=== PATIENT | female | born 1955 | race African-American/Black ===

== ENCOUNTER 2017-04-24 12:46 | Inpatient (IN) | payer OTHER ==
--- OUTSIDE RECORDS SUMMARY | 2017-04-24 12:50 | XMS | Clinical Summary ---
:1955 Author Organization [facility] Address [address] [place] [address] Phone Care Team Providers Name Role Phone , Primary Care Provider Unavailable Allergies Not on File Current Medications Not on file Active Problems Not on file Social History Tobacco Use Types Packs/Day Years Used Date Never Assessed Sex Assigned at Date Recorded Not on file Last Filed Vital Signs Not on file Plan of Treatment Not on file Results Not on filefrom Last 3 Months
[2017-04-24] MEDS ORDERED: Ondansetron HCl/PF 4 MG/2 ML Vial IVP PRN (13:20)
[2017-04-24 14:08] LABS: PTT 72.9 SEC (22.9-36.1); Prothrombin Time 43.6 SEC (12.0-14.7)
[2017-04-24 14:27] LABS: ALT (SGPT) 8 U/L (8-55); AST (SGOT) 18 U/L (5-34); Alkaline Phosphatase 60 U/L (40-150); Anion Gap 24 mmol/L (10-20); BUN (Urea Nitrogen) 39 mg/dL (9.8-20.1); Bilirubin, Total 0.9 mg/dL (0.2-1.2); Calc. Creatinine Clearance 0 mL/min (70-130); Calcium 9.5 mg/dL (7.8-10.44); Carbon Dioxide 19 mmol/L (23-31); Chloride 93 mmol/L (98-107); Estimated GFR-MDRD 46; Globulin 4.4 g/dL (2.4-3.5); Protein, Total 7.4 g/dL (6.0-8.3)
[2017-04-24 15:05] LABS: Acanthocytes SLIGHT = 1-5 cells (100X) (None Seen); Anisocytosis SLIGHT = 6-15 cells (100X) (0-5/hpf); Hematocrit 32.1 % (36.0-47.0); Hypochromia SLIGHT = 6-15 cells (100X) (0-5/hpf); Mean Platelet Volume 6.4 fL (7.4-10.4); Neutrophil 94 % (42-75); Red Blood Cell (RBC) Count 3.42 mill/uL (4.20-5.40); White Blood Cell (WBC) Count 21.2 thou/uL (4.8-10.8)
[2017-04-24 16:27] LABS: Hematocrit 31.5 % (36.0-47.0)
[2017-04-24] MEDS ORDERED: Warfarin Sodium 2 MG TAB PO SCH (17:00)
[2017-04-24] MEDS: Furosemide 20 MG/2 ML VIAL SLOW IVP SCH (17:00)
[2017-04-24] MEDS: Atorvastatin Calcium 20 MG TAB PO SCH (20:55)
[2017-04-24] MEDS ORDERED: Enoxaparin Sodium 60 MG/0.6 ML SYRINGE SC SCH (21:00)
[2017-04-25] MEDS: Furosemide 20 MG/2 ML VIAL SLOW IVP SCH (03:12)
[2017-04-25 06:32] LABS: Prothrombin Time 50.1 SEC (12.0-14.7)
[2017-04-25] MEDS ORDERED: Digoxin 0.125 MG TAB PO SCH (09:00)
--- NOTE | 2017-04-25 09:36 | PRG ---
DATE OF SERVICE: 04/25/2017 Ms. Herrera is not feeling well. Her appetite is poor, she is not breathing well. She is not having a lot of urine output. PHYSICAL EXAMINATION: VITAL SIGNS: Blood pressure is 145/102, pulse is variable, 80 to 104. LUNGS: Clear. CARDIAC: Irregularly. ABDOMEN: Soft, nontender. EXTREMITIES: There is only mild edema. ASSESSMENT: 1. Congestive heart failure, diastolic, acute on chronic. 2. Atrial arrhythmias. 3. Intracavitary thrombus (thrombus in left atrial appendage). PLAN: Transesophageal echo tomorrow. Hopefully cardioversion with a goal of ablation. The patient 's status is tenuous currently.
--- NOTE | 2017-04-25 10:55 | RAD ---
CHEST ONE VIEW: History: CHF. Comparison: 03-28-17 FINDINGS: Cardiac silhouette is now predominately obscured by pleural fluid, left greater than right. Pulmonar y vasculature is markedly engorged with reticular nodular interstitial prominence remaining througho ut the remaining lung. Mediastinum is midline with posterior operative changes evident. Cardiac eliu tor leads overlie the chest. IMPRESSION: Pulmonary edema with large bilateral effusions. POS: [facility]
[2017-04-25] MEDS ORDERED: Furosemide 20 MG/2 ML VIAL SLOW IVP SCH ×2 (14:00→20:00)
[2017-04-25] MEDS: Atorvastatin Calcium 20 MG TAB PO SCH (20:01)
[2017-04-26] MEDS: Furosemide 20 MG/2 ML VIAL SLOW IVP SCH ×2 (05:21→13:35)
[2017-04-26 06:11] LABS: PTT 69.7 SEC (22.9-36.1); Prothrombin Time 41.8 SEC (12.0-14.7)
[2017-04-26 06:27] LABS: Anion Gap 18 mmol/L (10-20); BUN (Urea Nitrogen) 47 mg/dL (9.8-20.1); Calc. Creatinine Clearance 44 mL/min (70-130); Calcium 9.3 mg/dL (7.8-10.44); Carbon Dioxide 26 mmol/L (23-31); Chloride 93 mmol/L (98-107); Estimated GFR-MDRD 60
[2017-04-26 06:30] LABS: Digoxin 2.91 ng/mL (0.8-2.0)
--- NOTE | 2017-04-26 07:44 | RAD ---
CHEST 1 VIEW: Date: 04/26/17 HISTORY: Congestive heart failure. COMPARISON: Chest 1 view from prior day. FINDINGS: Large left and moderate right-sided layering effusions are similar. Compression atelectasis lung bas es, right middle lobe, and lingula. No pneumothorax. Median sternotomy wires. Mild dextroscoliosis o f the thoracic spine. IMPRESSION: No significant change in radiographic appearance of chest. Thoracentesis may be helpful. POS: [facility]
--- NOTE | 2017-04-26 09:32 | PRG ---
DATE OF SERVICE: 04/26/2017 Ms. Herrera is sitting up on the bedside. States she feels somewhat better today. PHYSICAL EXAMINATION: VITAL SIGNS: Blood pressure 118/77, pulse 70. Most recent rhythm strip actually looks like atrial fibrillation. LUNGS: Clear. CARDIAC: Irregularly irregular. ABDOMEN: Soft, nontender. EXTREMITIES: With still moderate edema. PERTINENT LABORATORY: The potassium is 4.2, sodium is 133, creatinine 1.12. Digoxin level is 2.91, which helps to explain her nausea and lack of appetite. ASSESSMENT: 1. Diastolic heart failure. 2. Large left pleural effusion. 3. Atrial tachycardia, atrial flutter, and atrial fibrillation. 4. Mild mitral stenosis. PLAN: 1. Transesophageal echo, possible cardioversion tomorrow. 2. Consult Pulmonary about possible thoracentesis.
--- NOTE | 2017-04-26 11:46 | PQF ---
CLINICAL DOCUMENTATION IMPROVEMENT CLARIFICATION FORM: ICD-10 Updated PLEASE DO AN ADDENDUM TO THE PROGRESS NOTE WITH ANY DOCUMENTATION UPDATES OR ADDITIONS AND CARRY THROUGH TO DC SUMMARY. THANK YOU. Date: 04/26/17 ATTN: Dr. Sawyer Please exercise your independent, professional judgment in responding to the clarification form. Clinical indicators are provided on the bottom of this form for your review Please check appropriate box(s): [ ] Protein Calorie Malnutrition: [ ] Mild [ ] Moderate [ ] Severe [ ] Other Malnutrition (please specify) __ [ ] Underweight without malnutrition [ ] Cachexia [ ] Other diagnosis [ ] Unable to determine In addition, please specify: Present on Admission (POA): [ ] Yes [ ] No [ ] Unable to determine CLINICAL INDICATORS - SIGNS / SYMPTOMS / LABS PN 10/3: HER APPETITE IS POOR, NOT BREATHING WELL. 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 LIMITED PO INTAKE X3- 4 WKS, 11% WT LOSS IN 1 MONTH, 15% WT LOSS IN -2 MONTHS, MUSCLE WASTING NOTED. RISK FACTORS: H&P: HX OF ATRIAL FIBRILLATION. IMPRESSION: DIASTOLIC CHF, ACUTE ON CHRONIC PN /: DIGOXIN LEVEL IS 2.91, WHICH HELPS TO EXPLAIN HER NAUSEA & LACK OF APPETITE TREATMENT: STATION INSPECTOR CONSULT TRIGGERED FOR BMI 18.5. (This form is maintained as a part of the permanent medical record) 2014 [employer], [employer]. All Rights Reserved Verónica Martinez RN, BSN [email or web address] Office: [phone] [facility]PITALJae
[2017-04-26 15:04] LABS: BF Reference Range Comment Note:
[2017-04-26 16:11] LABS: Hematocrit 30.8 % (36.0-47.0)
--- NOTE | 2017-04-26 16:22 | RAD ---
CHEST ONE VIEW: History: Thoracentesis. Follow up. Comparison: Earlier exam, same date. FINDINGS: Cardiac silhouette is magnified, enlarged, and partially obscured by bilateral pleural fluid. Left p leural fluid has decreased significantly since the prior study. Large amount of right pleural fluid appears unchanged. No evidence of pneumothorax. Mediastinum is midline with aortic calcification and post-operative louisa nges. threat monitoring analyst leads overlie the chest. IMPRESSION: Interval left thoracentesis without evidence of complication. POS: [facility]
[2017-04-26 17:00] LABS: BF Color Red
[2017-04-26 17:03] LABS: RBC Count-Automated 753000 /cumm
[2017-04-26 17:38] LABS: Number Cells Counted-Fluids 100
--- NOTE | 2017-04-26 20:22 | CON ---
DATE OF CONSULTATION: 04/26/2017 SUBJECTIVE: A 61-year-old female being consulted regarding bilateral pleural effusion. The patient has been in the hospital since 2 days. She presented with increasing shortness of breath about a w [place]'s duration. X-ray shows a massive left pleural effusion. PAST MEDICAL HISTORY: Pertinent for previous CVA in 2007, embolic, status post mitral valve repair 2018 in [place], history of chronic atrial fibrillation, history of renal failure, hypertension. MEDICATIONS: Coumadin 2.5, Zocor 40, potassium, Protonix 40, Lopressor 25, Lasix 20, Cardizem 120, digoxin 0.125. SOCIAL HISTORY: The patient has never smoked. No prior history of TB, pneumonia, or bronchitis. PAST SURGICAL HISTORY: Appendix along with mitral valve repair, ablation procedures, and upper GI e ndoscopy. REVIEW OF SYSTEMS: Otherwise, unremarkable. PHYSICAL EXAMINATION: VITAL SIGNS: Her blood pressure is 108/60, sats 97%, respiratory rate 18, pulse 90. CHEST: Decreased breath sounds bilaterally. CARDIOVASCULAR: Normal S1, S2. No gallops. ABDOMEN: Soft. No masses. LABORATORY DATA: INR is 4.1 today. Digoxin level is 2.9. Creatinine 1.12. IMAGING: X-ray shows bilateral pleural effusion is noted. IMPRESSION: Bilateral pleural effusion, previous mitral valve repair, chronic atrial fibrillation, cerebrovascular accident. PLAN: A thoracentesis will be done to release some of her dyspnea on the left side. In the meantime, continue cardiac care. We will follow.
[2017-04-26] MEDS: Atorvastatin Calcium 20 MG TAB PO SCH (20:39)
--- NOTE | 2017-04-26 23:20 | OP ---
PROCEDURE: Thoracentesis. INDICATION: Massive pleural effusion, left side. PROCEDURE IN DETAIL: After informed consent, the left posterior thorax was cleaned with chlorhexidi ne, 1% Xylocaine infiltrated into the 8th intercostal space in the midscapular area and using a 22-g auge needle 1.5 inch, the pleural cavity was entered in and 20 mL of bloody effusion was removed. T hereafter, using an 8-Maltese catheter, a total of 1500 mL was removed without any difficulty. Effus ion sent for appropriate studies including cytology and culture. The patient tolerated the procedur e well.
[2017-04-27 05:56] LABS: Digoxin 2.67 ng/mL (0.8-2.0)
[2017-04-27 08:00] LABS: Prothrombin Time 40.2 SEC (12.0-14.7)
[2017-04-27] MEDS ORDERED: Diprivan 20 ML ONE (09:27)
[2017-04-27] MEDS ORDERED: Propofol 1,000 MG/100 ML VIAL IV ONE (09:43)
[2017-04-27] MEDS ORDERED: Propofol 200 MG/20 ML VIAL ONE (09:51)
--- NOTE | 2017-04-27 10:11 | PRG ---
DATE OF SERVICE: 04/27/2017 Thoracentesis fluid showed it was an exudate, protein was 4.9, it was bloody with 75,000 RBCs. She is down having a cardioversion done. PHYSICAL EXAMINATION: VITAL SIGNS: Sats are 97, pulse 67, O2 sat 90%, blood pressure 100/52. X-ray post-thoracentesis shows left lung looks much improved, still has a sizable pleural effusion i n the right side. IMPRESSION: 1. Bilateral pleural effusion, bloody on the left side, there is a large right pleural effusion. 2. Atrial fibrillation. PLAN: Consider doing a thoracentesis on the right side post-cardioversion.
[2017-04-27 12:30] LABS: BF Reference Range Comment Note:
[2017-04-27 12:47] LABS: BF Color Red
[2017-04-27 12:57] LABS: RBC Count-Automated 218000 /cumm
[2017-04-27 13:34] LABS: Number Cells Counted-Fluids 100
--- NOTE | 2017-04-27 15:20 | RAD ---
PORTABLE CHEST 1 VIEW: Date: 04/27/17 Time: 1159 hours HISTORY: Pleural effusion, thoracentesis. FINDINGS/IMPRESSION: Comparison made with exam from previous day. Interval changes of right-sided thoracentesis are seen with aeration of the right lung. No pneumotho rax or focal areas of consolidation seen in the right lung. The heart is enlarged. There is patchy opacity in the left upper lobe. There is consolidation/atelec tatic change in the left lower lobe with probable accompanying effusion. POS: [facility]
[2017-04-27] MEDS: Atorvastatin Calcium 20 MG TAB PO SCH (20:29)
--- NOTE | 2017-04-27 20:54 | CON ---
DATE OF CONSULTATION: 04/27/2017 ELECTROPHYSIOLOGY CONSULTATION NOTE REASON FOR CONSULTATION: Atrial arrhythmias and left atrial appendage thrombus. PHYSICIAN REQUESTING CONSULTATION: Fawad Sawyer M.D. HISTORY OF PRESENT ILLNESS: Barb Herrera is a 61-year-old -[place] woman. She has a very c omplicated medical history. She has a history of mitral stenosis and a remote history of rheumatic heart disease. She evidently underwent mitral valve repair roughly 7 years ago. It is unclear whet her any additional procedures were done at the time of the surgery such as a CryoMaze procedure. He r left atrial appendage was not ligated as she has been suffering more recently with recurrent atria l tachycardias for which she has been symptomatic. This was first noticed and imaged about 4 weeks ago when she underwent WILLIAM at that time, she was found to have a large highly mobile thrombus and le ft atrial appendage. She was not on anticoagulation at that time. She was started on Coumadin and not cardioverted because of the risk of cardioembolic event. She came back into the hospital with s hortness of breath and was found to have an elevated INR, even though she was only taking low doses of Coumadin, her INR was 5 and she was found to have bilateral pleural effusions, these were drained and were hemorrhagic effusions. Anticoagulation was held and repeat WILLIAM was performed. At this ti me, the left atrial appendage was well visualized and there appeared to be thickening, possibly laye red thrombus on the pulmonary venous side of the left atrial appendage. No further mobile thrombus was seen, but a great deal of spontaneous echo contrast was seen in the appendage itself. We were a sked to assist in her care. PAST MEDICAL HISTORY: 1. Mitral stenosis previously underwent mitral valve repair. The original cause of the mitral sten osis was believed to be a rheumatic heart disease. 2. Atrial arrhythmia originally was an atrial tachycardia and this is now degenerated into atrial f ibrillation. 3. Status post mitral valve repair for mitral stenosis. She does still have an intact left atrial appendage. 4. Evidence of left atrial appendage thrombus 4 weeks ago. This is not completely resolved, despit e supratherapeutic anticoagulation strategies. 5. Evidence of bloody pleural effusions. This is likely due to elevated INR. CURRENT MEDICATIONS: See reconciled list in chart. FAMILY HISTORY: Negative for premature coronary disease. SOCIAL HISTORY: The patient does not smoke, drink heavily or use illicit drugs. REVIEW OF SYSTEMS: Negative 10-point except as outlined in the HPI. PHYSICAL EXAMINATION: VITAL SIGNS: Blood pressure 130/70, pulse is 65-80 and somewhat irregular, and respirations 18. GENERAL: This is a very weak appearing woman, elderly, appears much older than her stated age. She is in no acute distress. NECK: Supple. There is obvious JVD noted when supine. Carotids are normal without bruit. HEART: Demonstrates an irregular rate, normal S1, S2. S1 is increased in intensity. There is a 1/ 6 systolic murmur noted. She has a midline sternotomy scar. LUNGS: Clear with some rhonchi. ABDOMEN: Soft, no tenderness or guarding. EXTREMITIES: Without edema. SKIN: Warm and dry. NEUROLOGIC: Exam grossly nonfocal. IMAGING DATA: Telemetry demonstrates atrial fibrillation with controlled ventricular response. Pre vious telemetry demonstrates what appears to be an atrial tachycardia with variable AV conduction. Echo was reviewed showing probably either chronic appendage wall thickening or possibly a layered th rombus on the venous side of the left atrial appendage. MEDICAL DECISION MAKING: I had a 15-minute discussion with Ms. Herrera. Her case is extremely compl icated. Her WILLIAM today is fairly alarming in that she has very elevated INR and despite that still h as some abnormal thickening of the left atrial appendage suggesting some residual thrombus and very dense spontaneous echo contrast within the cavity of the left atrial appendage itself despite the me dication. She has hemorrhagic pleural effusions which were likely due to the elevated INR, however, she obviously needs anticoagulation from the stroke prevention standpoint as she has had essentiall y prohibitively high stroke risk if she were not anticoagulated appropriately, given the fact that e jess low doses of Coumadin left to elevated INR as I think that she needs to be switched to a differe nt anticoagulant strategy. I would suggest Eliquis 5 b.i.d., this is technically off labile because she does have valvular heart disease and valvular atrial fibrillation; however, Coumadin is not saf e in this patient, given her obvious complications related to this medication. Moreover, Eliquis sh ould have a lower likelihood of further bleeding complications and other anticoagulation strategies such as Lovenox therapy. Moreover Lovenox would be prohibitively expensive for the patient. Next, we have long-term, I think the patient needs to be placed on anticoagulation whenever pulmonary appr oves reinitiation of anticoagulation from a hemorrhagic pleural effusion standpoint. Once on antico agulation I think that she needs to be considered for ablative therapy along with appendage closure as quickly as the clinical progress allows. IMPRESSION: 1. Atrial fibrillation and atrial tachycardia. This finding that has directly lead to left atrial thrombus which has mostly resolved, but appears to be not completely resolve even though her INR was very high. 2. Bilateral hemorrhagic pleural effusions, likely due to an elevated INR. 3. History of mitral valve repair for mitral stenosis several years ago. RECOMMENDATIONS: 1. Began Eliquis 5 b.i.d., whenever Pulmonary allows this to be reinitiated following her thoracent esis. 2. We would consider proceeding to ablation of arrhythmia along with appendage closure risk as soon as the next few weeks.
[2017-04-27] MEDS ORDERED: Diltiazem HCl SR 60 mg Capsule PO SCH (21:00)
--- NOTE | 2017-04-27 21:11 | OP ---
PROCEDURE: Thoracentesis. INDICATION: Pleural effusion, right-sided. PROCEDURE IN DETAIL: After informed consent, the right posterior thorax was cleaned with chlorhexid ine and 1% Xylocaine was infiltrated into the right ninth intercostal space in the midscapular line; 20 mL of bloody effusion was removed. Thereafter, using an 8-Dominican catheter, a total of 900 mL wa s removed from the right side without any difficulty. Patient otherwise tolerated the procedure wel l. Pleural effusion will be sent for appropriate studies including cytology and culture. She now has bilateral bloody pleural effusions. Awaiting cytology and cultures.
--- NOTE | 2017-04-27 22:36 | ECHO ---
This is a 61-year-old woman with mitral stenosis and paroxysmal atrial fibrillation. DESCRIPTION OF PROCEDURE: The patient was taken to the PACU. The patient sedated by anesthesiology. Transesophageal probe was placed distal esophagus and stomach. Echocardiographic images were obtained. The transesophageal p robe was removed. FINDINGS: 1. Normal left ventricular systolic function. 2. The mitral valve leaflets are thickened with reduced leaflet excursion. 3. Mild mitral stenosis. 4. Mild tricuspid regurgitation. 5. Trivial aortic regurgitation. 6. A small thrombus is noted in the left atrial appendage. 7. Atherosclerotic debris in the descending aorta. IMPRESSION: Small thrombus noted in the left atrial appendage.
[2017-04-28 05:12] LABS: #Lymphocytes 0.6 thou/uL (1.20-3.40); #Neutrophils 15.5 thou/uL (1.40-6.50); %Eosinophils 0.1 % (0.0-10.0); %Lymphocytes 3.3 % (21.0-51.0); Hematocrit 28.7 % (36.0-47.0); Mean Platelet Volume 6.3 fL (7.4-10.4); Red Blood Cell (RBC) Count 3.05 mill/uL (4.20-5.40); White Blood Cell (WBC) Count 17.1 thou/uL (4.8-10.8)
[2017-04-28 05:18] LABS: Prothrombin Time 37.8 SEC (12.0-14.7)
--- NOTE | 2017-04-28 09:59 | RAD ---
PORTABLE CHEST: DATE: 04/28/17. PROVIDED CLINICAL HISTORY: Pleural effusion. FINDINGS: Comparison is made with the study dated 04/27/17. The cardiac silhouette remains enlarged. There is interval decrease in the amount of left pleural density with residual parenchymal opacity involving the left mid and lower lung zones demonstrated. There is interval development of consolidation inv olving the right lung base. There is no evidence for pneumothorax. Chronic obstructive changes are redemonstrated. IMPRESSION: 1. Interval reduction in the degree of left pleural opacity with persistent left mid and lower lung zone parenchymal opacity. 2. Interval development of right basilar airspace disease compatible with pneumonia or aspiration. POS: [facility]
--- NOTE | 2017-04-28 10:32 | PRG ---
DATE OF SERVICE: 04/28/2017 SUBJECTIVE: Ms. Herrera feeling somewhat better today. She underwent transesophageal echo, still bolton s some thrombus. She has undergone bilateral thoracentesis for bloody effusions. OBJECTIVE: VITAL SIGNS: Blood pressure 98/58, pulse it is in high 70s, irregular. LUNGS: Clear anterolaterally. CARDIAC: Irregularly irregular. ABDOMEN: Soft and nontender. ASSESSMENT: 1. Atrial fibrillation with accompanying diastolic dysfunction. 2. Bilateral bloody effusions which seems to correlate with increased INR, but not completely expla ined. I think she has some new infiltrate, it is unclear of the etiology of this. It could be reex pansion edema. We will give antibiotics to cover for any possible infection. PLAN: 1. Oral antibiotics. 2. Diltiazem. 3. Continue to hold Coumadin. 4. Dr. Chambers eventually plans on doing left atrial occlusion device and ablation.
--- NOTE | 2017-04-28 13:25 | PRG ---
DATE OF SERVICE: 04/28/2017 She is status post thoracentesis with bilateral effusion bloody exudate. She says she is better, sh e is less short of breath. Unfortunately, the x-ray today shows new bilateral pulmonary infiltrates , question whether this is diastolic dysfunction versus reexpansion edema. Though she is clearly le ss short of breath. PHYSICAL EXAMINATION: VITAL SIGNS: Blood pressure 98/58, pulse 66, temperature 97, sats are 90% on 2 liters. CHEST: Decreased breath sounds without any wheezing. CARDIAC: Normal S1, S2. No gallops. ABDOMEN: Soft, no masses. LABORATORY: White count 17,000, H\T\H 8 and 28, platelet count is normal. Electrolytes are normal. IMPRESSION: 1. Bilateral bloody effusion, awaiting cytology. 2. Diastolic dysfunction. 3. Persistent clots. PLAN: I have started empiric antibiotics. Continue Coumadin, supportive care. I will follow.
[2017-04-28 16:08] LABS: Hematocrit 28.7 % (36.0-47.0)
[2017-04-28] MEDS: Atorvastatin Calcium 20 MG TAB PO SCH (22:09)
[2017-04-28] MEDS: Cefdinir 300 MG CAP PO SCH (22:09)
--- NOTE | 2017-04-29 00:52 | PRG ---
DATE OF SERVICE: 04/28/2017 SUBJECTIVE: Ms. Herrera is doing well today. No angina, no CHF or significant dyspnea noted. OBJECTIVE DATA: VITAL SIGNS: Blood pressure is 97/58, heart rate is 64, respirations 16, temperature 98 degrees Fah renheit. GENERAL: Alert and oriented woman, in no apparent distress. NECK: Supple. Jugular veins not distended. CHEST: Coarse with few crackles at both bases. HEART: sounds are irregularly irregular. S1 and S2 are variable. No murmur or gallop. ABDOMEN: Benign. Bowel sounds positive. EXTREMITIES: Lower extremities without edema, clubbing or cyanosis. DATABASE: The EKG is reviewed. Telemetry strips reviewed reveals atrial fibrillation. LABORATORY DATA: White count 17.1, hemoglobin 8.9, platelet count is 390. Sodium 133, potassium 4. 2, BUN is 47, creatinine 1.1. INR is 3.6 today. Chest x-ray from today reveals reduction of the pl eural opacity in the left side, right basilar airspace disease, pneumonia versus aspiration noted. ASSESSMENT: Ms. Herrera is a 61-year-old woman with complicated history including mitral valve repai r, possible rheumatic mitral stenosis present now only to a mild degree. She has had history of irr egular atrial tachyarrhythmias, which felt to be secondary to a possible incisional atrial flutter. Subsequently, she developed atrial fibrillation as well. She has been on anticoagulation hence rec ent WILLIAM last admission demonstrated left atrial appendage clot, which still has not been completely resolved on follow up WILLIAM today. Her INRs are rather high. Complicated issues that she had some he morrhagic pleural effusions required tap this admission as well. Now she is off Coumadin and her IN R levels are decreasing. She is on rate control for her atrial fibrillation. PLAN: 1. As discussed with Dr. Chambers, is consider placing her on more reliant anticoagulant like Eliquis 5 mg twice a day, once pulmonary agrees, hence she is at high risk for strokes heavy smoke/sp ontaneous echo contrast on her WILLIAM incomplete resolution of her prior left atrial appendage cl ot possibly due to her rheumatic atrial disease. 2. Once she is back on anticoagulation, consider outpatient atrial tachycardia/pulmonary vein isola tion procedure and consider left atrial appendage closure as well likely in [place]. We will make arrangements for this to see us back early in an outpatient for having this set up.
[2017-04-29 05:22] LABS: Prothrombin Time 31.7 SEC (12.0-14.7)
[2017-04-29] MEDS: Cefdinir 300 MG CAP PO SCH ×2 (08:50→20:48)
--- NOTE | 2017-04-29 14:32 | RAD ---
CHEST 1 VIEW: HISTORY: CHF. Followup. COMPARISON: 04/28/17. FINDINGS: Cardiac silhouette remains magnified and enlarged. Pulmonary vasculature is engorged with patchy bi lateral perihilar and bibasilar infiltrates that are similar in appearance to the previous exam. Me diastinum remains midline with postoperative changes and aortic calcification. There is no evidence of pneumothorax. IMPRESSION: Radiographic appearance of congestive heart failure is stable compared to the previous exam. POS: [facility]
[2017-04-29 15:11] LABS: Fungus Smear Status Final report (.)
[2017-04-29 15:11] LABS: Fungus Smear Status Final report (.)
--- NOTE | 2017-04-29 15:48 | PRG ---
DATE OF SERVICE: 04/29/2017 SUBJECTIVE: Ms. Herrera clinically is unchanged. She tells me she has been losing weight since . OBJECTIVE: VITAL SIGNS: She is afebrile. Heart rate is 82 and blood pressure 148/89. LUNGS: Clear. HEART: Regular rhythm. ABDOMEN: Soft. LABORATORY DATA: Hemoglobin is 9. Sodium 133, potassium 4.2, chloride 93, bicarb 26, BUN 47 and creatinine down to 1.12. Both pleural fluid specimens have adenocarcinoma cytology. IMPRESSION: Adenocarcinoma of unknown primary. She is up to date on her colonoscopies. She still has her ovaries; ordered a CT of her chest, abdomen and pelvis without IV contrast since she present ed with an elevated creatinine and has no muscle mass. I do not think her creatinine is reflective of her renal function. I have not told her of her diagnosis, but I have told her that we are concer yaz about malignancy. I have planned to tell her tomorrow after her CT imaging.
--- NOTE | 2017-04-29 16:24 | PDOC.CTH ---
<Odessa Manriquez - Last Filed: 04/29/17 16:22> Cardiology Progress Note - Subjective The pt was seen and examined. No overnight events. No cardiac complaints. She stated she can breath better today. She stated her pleural fluid was bloody and will have CT scan chest today. She also stated that her appetite is better today - Objective Vital Signs Temp Pulse Pulse Pulse Resp BP BP 04/29/17 16:00 98.2 F 84 16 04/29/17 12:00 98 F 82 17 04/29/17 10:53 97 71 104/62 04/29/17 08:51 86 148/89 H 04/29/17 07:51 98.5 F 86 18 04/29/17 07:50 98.5 F 86 18 BP BP Pulse Ox Pulse Ox Pulse Ox 04/29/17 16:00 114/62 97 04/29/17 12:00 111/68 98 04/29/17 10:53 92/60 100 100 04/29/17 08:51 04/29/17 07:51 95 04/29/17 07:50 111/71 95 Admit Weight 114 lb 14.4 oz Weight 108 lb 14.4 oz 04/28/17 04/29/17 04/30/17 06:59 06:59 06:59 Intake Total 480 840 360 Output Total 550 400 Balance -70 440 360 - Physical Examination General/Neuro: alert & oriented x3 Neck: no JVD present Lungs: other: (diminished at bases) Heart: other: (irregular) Abdomen: soft Extremities: other: (2+ pitting edema in bilat ankles) - Telemetry Telemetry Rhythm: Afib - Labs Result Diagrams: 04/28/17 16:02 04/26/17 05:44 - Assessment/Plan 1. Atach/Afib/Alutter - Rate controlled; managed by EP 2. Acute on Chronic Diastolic HF - stable; cont. monitor 3. Lt plural effusion - Cytology revealed possible adenocarcinoma; resolut of Chest CT scan is pending; Dr Sanders will notify to the pt tomorrow 4. AKD - stable MAR reviewed Review of Systems - Review of Systems Constitutional: reports: no symptoms reported EENTM: reports: no symptoms reported Respiratory: reports: no symptoms reported Cardiac (ROS): reports: no symptoms reported ABD/GI: reports: no symptoms reported : reports: no symptoms reported <Misael Nolen - Last Filed: 04/29/17 20:05> Cardiology Progress Note - Objective Vital Signs Temp Pulse Pulse Pulse Resp BP BP 04/29/17 16:00 98.2 F 84 16 04/29/17 12:00 98 F 82 17 04/29/17 10:53 97 71 104/62 04/29/17 08:51 86 148/89 H BP BP Pulse Ox Pulse Ox Pulse Ox 04/29/17 16:00 114/62 97 04/29/17 12:00 111/68 98 04/29/17 10:53 92/60 100 100 04/29/17 08:51 Admit Weight 114 lb 14.4 oz Weight 108 lb 14.4 oz 04/28/17 04/29/17 04/30/17 06:59 06:59 06:59 Intake Total 480 840 960 Output Total 550 400 350 Balance -70 440 610 - Labs Result Diagrams: 04/28/17 16:02 04/26/17 05:44 - Assessment/Plan Pt. was seen and evaluated by me. I agree with the A/P by the TAKE UP SUPERVISOR. The effusions and diagnosis and discussion with the findings will be dealt with by pulmonology.
--- NOTE | 2017-04-29 18:13 | CT ---
CT CHEST WITHOUT CONTRAST CT ABDOMEN WITHOUT CONTRAST CT PELVIS WITHOUT CONTRAST 04/29/17 HISTORY: Bilateral malignant effusions, abnormal paracentesis, formed blood, possible adenocarcinoma. FINDINGS: Absence of IV contrast reduces the sensitivity of the exam particularly for evaluation of mediastina l, hilar, vascular structures and solid organs. There are moderate sized bilateral pleural effusions with adjacent patchy areas of consolidation. Th ere is evidence of old granulomatous disease in the chest. A moderate sized hiatal hernia is present . There is a 10 mm mediastinal lymph node in the precarinal region. There are vascular calcifications without evidence of aneurysmal dilatation of the thoracoabdominal aorta. No free air is seen in the abdomen. There is free fluid in the abdomen and pelvis consistent with as cites. There is an 18 mm low density lesion in the right lobe of the liver which does not meet criteria for simple cyst. There is mildly high density material in the gallbladder. No calculi is seen in the ki dneys, ureters or the urinary bladder. No hydroureteronephrosis noted on either side. The small bowel loops are not abnormally dilated. There is fecal material in the colon. There is med iastinal lymphadenopathy and omental thickening. There is nodularity arising from the peritoneum in the pelvis. Fibroid uterus is seen with some of the fibroids demonstrating calcifications. There are degenerative changes in the spine. There are postop changes of median sternotomy. There is a soft tissue mass in the left inguinal region measuring 3.5 cm likely lymphadenopathy. IMPRESSION: 1. Bilateral pleural effusions and adjacent areas of patchy consolidation. 2. Hiatal hernia. 3. Indeterminate 8 mm right liver lobe lesion. 4. Probable cholelithiasis. 5. Ascites. 6. Omental and peritoneal metastasis. 7. Mediastinal lymphadenopathy. 8. Fibroid uterus. 9. Left inguinal mass. 10.Findings are suspicious for metastatic disease. POS: [facility]
[2017-04-29] MEDS: Atorvastatin Calcium 20 MG TAB PO SCH (20:49)
[2017-04-30 05:35] LABS: Prothrombin Time 25.7 SEC (12.0-14.7)
[2017-04-30] MEDS: Cefdinir 300 MG CAP PO SCH ×2 (08:47→21:31)
--- NOTE | 2017-04-30 11:50 | RAD ---
AP VIEW CHEST: HISTORY: Congestive heart failure. FINDINGS: AP view chest is obtained on 04/30/17. Comparison is made to previous exam from 04/29/17. AP view chest demonstrates cardiomegaly. Sternotomy wires are seen. Small bilateral pleural effusi ons seen. Diffuse airspace opacities are seen in both perihilar and lung base regions. These may represent pu lmonary edema or pneumonia. Radiographic appearance of the chest is stable and unchanged. IMPRESSION: Stable AP view chest. POS: [facility]
--- NOTE | 2017-04-30 15:20 | PRG ---
DATE OF SERVICE: 04/30/2017 SUBJECTIVE: Ms. Herrera is hemodynamically stable. She is afebrile, heart rate 82, respiratory rate is 18, oximetry is 96, blood pressure 101/67. Heart and abdomen are unchanged. She does have a large left inguinal nodes that her 's has been there waxing and waning for ab out a year. He says she has been treated with antibiotics for this lymphadenopathy and lymph nodes have gone away. CT of her chest, abdomen and pelvis were reviewed. Bilateral pleural effusions were seen, old granu lomatous disease was seen, hiatal hernia was noted, 1 cm lymphnode was seen in the precarinal area. She has ascites. There is a 1.8 cm right lobe of the liver lesion, lymph nodes were seen in the ab domen and omental thickening was seen. Peritoneum was seen in the pelvis, uterine fibroids were see n. Left groin mass that was palpated today was seen measuring 3.5 cm. IMPRESSION: ? primary peritoneal carcinoma with ascites and pleural effusions as a result of this. I was consulted Oncology. More tissues needed these left inguinal lymph nodes should be easily acc essible. It is unclear with the history waxing and waning, although whether or not there will be ma lignant, but tissue diagnosis is probably at least risky here first. Given her underlying cardiac i ssues. I met with her and her for approximately 30 minutes and answered all of their questi ons.
[2017-04-30 15:58] LABS: Hematocrit 30.5 % (36.0-47.0)
--- NOTE | 2017-04-30 18:26 | PDOC.CTH ---
<MitraOdessa - Last Filed: 04/30/17 18:43> Cardiology Progress Note - Subjective The pt was seen and examined. No overnight events. No cardiac complaints. She stated she finally had BM today. - Objective Vital Signs Temp Pulse Resp BP Pulse Ox 04/30/17 16:00 98.4 F 118 H 18 145/77 H 04/30/17 12:00 97.4 F L 87 18 110/70 20 L 04/30/17 08:47 82 04/30/17 08:00 98.4 F 118 H 18 95 04/30/17 07:30 98.2 F 82 18 101/67 96 Admit Weight 114 lb 14.4 oz Weight 109 lb 8 oz 04/29/17 04/30/17 05/01/17 06:59 06:59 06:59 Intake Total 840 1060 Output Total 400 650 Balance 440 410 - Physical Examination General/Neuro: alert & oriented x3 Neck: no JVD present Lungs: CTA Heart: other: (irregular) Abdomen: soft Extremities: other: (No edema) - Telemetry Telemetry Rhythm: Afib 90s - Labs Result Diagrams: 04/30/17 15:44 04/26/17 05:44 - Assessment/Plan 1. Atach/Afib/Alutter - Rate controlled; managed by EP 2. Acute on Chronic Diastolic HF - stable; cont. monitor 3. Lt plural effusion - CT at chest, ABD, and Pelvis showed omental and peritoneal metastasis, bilat. pleural effusion, 1 cm lymphnode in precainal area , ascites, Lt Inguinal mass 4. AKD - stable MAR reviewed * CT at chest, ABD, and Pelvis showed omental and peritoneal metastasis, bilat. pleural effusion, 1 cm lymph node in precainal area, ascites, and Lt Inguinal mass; Review of Systems - Review of Systems Constitutional: reports: no symptoms reported EENTM: reports: no symptoms reported Respiratory: reports: no symptoms reported Cardiac (ROS): reports: no symptoms reported ABD/GI: reports: no symptoms reported : reports: no symptoms reported Musculoskeletal: reports: no symptoms reported <Misael Nolen - Last Filed: 04/30/17 22:25> Cardiology Progress Note - Objective Vital Signs Temp Pulse Resp BP BP Pulse Ox 04/30/17 19:30 98.2 F 80 18 97/71 97 04/30/17 16:00 98.4 F 118 H 18 145/77 H 04/30/17 12:00 97.4 F L 87 18 110/70 20 L Admit Weight 114 lb 14.4 oz Weight 109 lb 8 oz 04/29/17 04/30/17 05/01/17 06:59 06:59 06:59 Intake Total 840 1060 Output Total 400 650 Balance 440 410 - Labs Result Diagrams: 04/30/17 15:44 04/26/17 05:44 - Assessment/Plan Pt. seen and evaluated. i agree with the A/P by the FENCE BUILDER
[2017-04-30] MEDS: Atorvastatin Calcium 20 MG TAB PO SCH (21:31)
[2017-05-01 05:14] LABS: Prothrombin Time 21.9 SEC (12.0-14.7)
--- NOTE | 2017-05-01 08:22 | RAD ---
AP VIEW CHEST: HISTORY: Congestive heart failure, 61-year-old female. FINDINGS: AP view chest was obtained on 05/01/17. Comparison is made to previous exam from 04/30/17. AP view chest demonstrates sternotomy wires seen. Cardiomegaly is noted. Bibasilar areas of airspa ce opacity are seen, not significantly changed since the previous exam. Small bilateral pleural eff usions seen. IMPRESSION: Stable AP view of the chest not significantly changed since the previous day's exam. POS: [facility]
[2017-05-01] MEDS ORDERED: Enoxaparin Sodium 60 MG/0.6 ML SYRINGE SC SCH (09:00)
[2017-05-01] MEDS ORDERED: Enoxaparin Sodium 40 MG/0.4 ML SYRINGE SC SCH (09:15)
--- NOTE | 2017-05-01 09:38 | PRG ---
DATE OF SERVICE: 05/01/2017 Ms. Herrera is sitting up in the chair, feeling better today. She has no chest pain or pressure. PHYSICAL EXAMINATION: VITAL SIGNS: Blood pressure 101/63, pulse 76 irregular. LUNGS: Clear. CARDIAC: Irregular, irregular. ABDOMEN: Soft, nontender. EXTREMITIES: No edema. Reviewing the records, it appears that there is some evidence of malignancy in the pleural fluid whi ch was obtained, also some omental and peritoneal metastasis. Intracardiac thrombus. PLAN: 1. Will need to start enoxaparin as her Coumadin level is subtherapeutic now. 1. Oncology consultation pending. Prognosis is guarded.
--- NOTE | 2017-05-01 11:17 | PRG ---
DATE OF SERVICE: 05/01/2017 Ms. Herrera did well overnight. She has no complaints. She is in no distress. PHYSICAL EXAMINATION: VITAL SIGNS: She is afebrile, heart rate 92, respiratory rate is 12, oximetry is 100, blood pressur e 105/64. LUNGS: Lungs are clear. Hemoglobin was 9.4 yesterday. There is hemoglobin today. Electrolytes have not been checked since the 4th. IMPRESSION: ? Primary peritoneal carcinoma. She is scheduled for lymph node biopsy today. She is NPO.
[2017-05-01 12:04] LABS: Anion Gap 14 mmol/L (10-20); BUN (Urea Nitrogen) 20 mg/dL (9.8-20.1); Calc. Creatinine Clearance 63 mL/min (70-130); Calcium 8.1 mg/dL (7.8-10.44); Carbon Dioxide 26 mmol/L (23-31); Chloride 97 mmol/L (98-107); Estimated GFR-MDRD Greater than 90
--- NOTE | 2017-05-01 12:13 | PQF ---
CLINICAL DOCUMENTATION IMPROVEMENT CLARIFICATION FORM: ICD-10 Updated PLEASE DO AN ADDENDUM TO THE PROGRESS NOTE WITH ANY DOCUMENTATION UPDATES OR ADDITIONS AND CARRY THROUGH TO DC SUMMARY. THANK YOU. Date: 05/01/17 ATTN : Dr. Sawyer Please exercise your independent, professional judgment in responding to the clarification form. Clinical indicators are provided on the bottom of this form for your review Please check appropriate box(s): [ ] Protein Calorie Malnutrition: [ ] Mild [ ] Moderate [ ] Severe [ ] Other Malnutrition (please specify) __ [ ] Underweight without malnutrition [ ] Cachexia [ ] Other diagnosis [ ] Unable to determine In addition, please specify: Present on Admission (POA): [ ] Yes [ ] No [ ] Unable to determine CLINICAL INDICATORS - SIGNS / SYMPTOMS / LABS PN 04/25: HER APPETITE IS POOR, NOT BREATHING WELL. COACH OPERATOR ASSESS 04/25: TRIGGERED FOR BMI 18.4 NUTRITION DX: MALNUTRITION RELATED TO CHF. LIMITED PO INTAKE X3- 4 WKS, 11% WT LOSS IN -1 MONTH, 15% WT LOSS IN -2 MONTHS, MUSCLE WASTING NOTED. COACH OPERATOR ASSESS 05/01: BMI 17.7 RISK FACTORS: H&P: HX OF ATRIAL FIBRILLATION. DIASTOLIC CHF, ACUTE ON CHRONIC PN 05/01: IT APPEARS THAT THERE IS SOME EVIDENCE OF MALIGNANCY IN THE PLEURAL FLUID, ALSO SOME OMENTAL & PERITONEAL METASTASIS. TREATMENT: COACH OPERATOR CONSULT TRIGGERED FOR BMI 18.5. ORDER 04/28: FOR DIET SUPPLEMENT TID (This form is maintained as a part of the permanent medical record) 2014 [employer]. All Rights Reserved Verónica Martinez RN, BSN [email or web address] Office: [phone] [facility]
[2017-05-01] MEDS ORDERED: Lidocaine 1% w/Epinephrine 1:200K 30 ML VIAL ONE (12:56)
[2017-05-01] MEDS ORDERED: Fentanyl 100 MCG/2 ML VIAL ONE ×2 (13:16→14:59)
--- NOTE | 2017-05-01 14:13 | CON ---
DATE OF CONSULTATION: 05/01/2017 CONSULTING PHYSICIAN: Nitza Moreno, Nurse Practitioner CHIEF COMPLAINT: Left inguinal lymphadenopathy, malignant pleural effusion. HISTORY OF PRESENT ILLNESS: The patient is a 61-year-old pleasant black female. She has been hospi talized for a week. She initially presented with shortness of breath. She had a recent history of atrial fibrillation with a recognized intracardiac blood clot. Upon admission, it was recognized th at she had a large pleural effusion that was felt to potentially be contributing to her shortness of breath. She had a bilateral thoracentesis performed. Malignant cells were identified and the taps were both bloody. Subsequent imaging studies revealed some degree of ascites and potential mass in the pelvis. She was recognized to have a large left inguinal lymph node. I am consulted for a lym ph node biopsy to obtain a tissue diagnosis to hopefully help guide further treatment. The patient states that she has had some degree of inguinal lymphadenopathy over the course of the p ast year. She had developed this on one side and it was treated with antibiotics with reported reso lution. She developed then on the other side and this also seemed to respond to antibiotics. She a nd her believe that his current large left inguinal lymph node has been present for about 3 months. PAST MEDICAL HISTORY: 1. Cerebrovascular accident in 2007 (with no apparent sequelae from this). 2. History of atrial fibrillation and atrial flutter. 3. History of renal failure. 4. Hypertension. PAST SURGICAL HISTORY: 1. Appendectomy. 2. Open mitral valve repair about 10 years ago. 3. Cardiac ablation procedures. CURRENT MEDICATIONS: Coumadin, Zocor, potassium, Protonix, Lopressor, Lasix, Cardizem, digoxin. ALLERGIES: No known drug allergies. PERSONAL AND SOCIAL HISTORY: She is and is present at bedside. She has 2 children. She never smoked. PRIMARY CARE PHYSICIAN: Dr. Mederos. REVIEW OF SYSTEMS: Otherwise unremarkable. FAMILY HISTORY: Noncontributory. PHYSICAL EXAMINATION: VITAL SIGNS: She is afebrile. Vital signs are essentially within normal limits currently. GENERAL: She is alert and oriented x3. HEENT: Unremarkable. NECK: Supple. LUNGS: Clear to auscultation. CARDIAC: Irregularly irregular. LUNGS: Clear to auscultation bilaterally. ABDOMEN: Mildly protuberant, but soft and nontender. EXTREMITIES: She has an easily palpable mass in her left groin medially. This appears to be at ashish st 3 maybe 4 cm in diameter. There is mild lymphadenopathy on the right side if any. Extremities o therwise unremarkable. LABORATORY AND X-RAY FINDINGS: INR was elevated upon admission at 4, it is currently 1.9. ASSESSMENT: Patient with a malignancy of uncertain etiology with an apparent malignant pleural effu lalitha. She has large lymph nodes in her left groin and it is hoped that tissue sampling of this will allow us to recognize a diagnosis as the etiology of her cancer. Unfortunately, this is quite larg e in a woman who is relatively thin and removal of this has issues regarding subsequent seroma forma tion. I spoke with the patient regarding this. She understands and agrees to proceed. Additionall y, since she is anticoagulated there is potential risk associated with this in this patient. She wi ll continue on Lovenox postoperatively because of the risk regarding her cardiac situation and this also increases surgical site risk. It is, however, currently the lesser of the potential problems related to anticoagulation. The patient and her family understand and agree to proceed with surgery at this time.
[2017-05-01] MEDS ORDERED: Bupivacaine 0.25% HCL 30 ML VIAL ONE (14:44)
[2017-05-01] MEDS ORDERED: Midazolam HCl 2 mg/2 ml Vial ONE (14:59)
[2017-05-01] MEDS ORDERED: Lidocaine 1% PF 5 ML VIAL ONE (15:10)
[2017-05-01] MEDS ORDERED: Propofol 200 MG/20 ML VIAL ONE (15:10)
[2017-05-01] MEDS ORDERED: PHENYLEPHRINE-NS 100 MCG/ML 10 ML SYRINGE ONE (15:10)
[2017-05-01] MEDS ORDERED: ePHEDrine/0.9% NaCl/PF SYRINGE 50 mg/10 ml ONE (15:10)
[2017-05-01] MEDS ORDERED: Ondansetron HCl/PF 4 MG/2 ML Vial ONE (15:10)
[2017-05-01] MEDS ORDERED: Ondansetron HCl/PF 4 MG/2 ML Vial IVP PRN (16:43)
[2017-05-01] MEDS ORDERED: Morphine Sulfate 2 MG/ML SYRINGE SLOW IVP PRN (16:43)
[2017-05-01] MEDS ORDERED: Morphine Sulfate 2 MG/ML SYRINGE ONE (16:53)
[2017-05-01] MEDS: Cefdinir 300 MG CAP PO SCH ×2 (17:54→21:21)
[2017-05-01] MEDS: Atorvastatin Calcium 20 MG TAB PO SCH (21:21)
--- NOTE | 2017-05-01 23:08 | OP ---
DATE OF SERVICE: 05/01/2017 PREOPERATIVE DIAGNOSIS: Left inguinal lymphadenopathy with about a 4 cm left inguinal lymph node. POSTOPERATIVE DIAGNOSIS: Left inguinal lymphadenopathy with about a 4 cm left inguinal lymph node. OPERATION PERFORMED: Excision of large left inguinal lymph node with complex layered closure. SURGEON: Kendrick Quezada M.D. ANESTHESIA: General with laryngeal mask airway. INDICATIONS: The patient is a 61-year-old black female. She presented to the hospital and was foun d to have pleural effusions which were drained. There was found to be malignancy within the pleural effusions. Further workup revealed significant left inguinal lymphadenopathy and I am consulted at this time for left inguinal lymph node biopsy for diagnosis. DESCRIPTION OF OPERATION: Informed consent was obtained. The patient was taken to the operating ro om where general anesthesia was obtained with the patient in supine position. Left groin was preppe d with ChloraPrep and draped in sterile fashion. Local anesthetic was infiltrated using 1% lidocain e with epinephrine. Transverse incision was created over the large visible and palpable lymph node. Dissection was carried through skin and subcutaneous tissue down to the lymph node. It was carefu lly dissected circumferentially. All investing tissue was divided between clamps and 2-0 silk ties. At the base of the lymph node with the largest amount of investing tissue, the tissue was clamped and it was excised and the tissue was ligated with a suture ligature of 2-0 Vicryl. Hemostasis was meticulous within the wound. It was then closed in a multilayered fashion using a series of interru pted sutures of 3-0 Vicryl to try and approximate the large space. Skin edges approximated wit h a running subcuticular suture of 4-0 Monocryl. Dermabond was placed externally. There were no co mplications. The patient tolerated the procedure well and was taken to recovery room in stable cond ition.
[2017-05-02 05:53] LABS: Hematocrit 27.2 % (36.0-47.0)
[2017-05-02 06:22] LABS: Calc. Creatinine Clearance 66 mL/min (70-130); Estimated GFR-MDRD Greater than 90
[2017-05-02] MEDS ORDERED: Enoxaparin Sodium 40 MG/0.4 ML SYRINGE SC SCH (09:15)
--- NOTE | 2017-05-02 09:29 | PRG ---
DATE OF SERVICE: 05/02/2017 Ms. Herrera is feeling well today. No chest pain or pressure, but she has very little appetite. She has been given dietary supplements to try to help, but I do not think she is taking a lot of the m. The patient underwent left inguinal node biopsy yesterday. PHYSICAL EXAMINATION: VITAL SIGNS: Blood pressure is low 94/51, pulse 80, it is irregular. LUNGS: Clear. CARDIAC: Irregular, irregular. ABDOMEN: Soft, nontender. EXTREMITIES: There is no significant edema. ASSESSMENT: 1. Metastatic cancer. 2. Atrial fibrillation. 3. Atrial thrombus. 4. Malnutrition. PLAN: 1. She is getting dietary supplementation. 2. We will need to resume Lovenox, we will start at 40 mg q.12 h. 3. Repeat chest x-ray tomorrow. Prognosis is guarded.
[2017-05-02] MEDS: Cefdinir 300 MG CAP PO SCH ×2 (09:34→20:17)
[2017-05-02] MEDS ORDERED: Milk Of Magnesia 30 ML UDCUP PO PRN (10:33)
[2017-05-02] MEDS: Enoxaparin Sodium 40 MG/0.4 ML SYRINGE SC SCH ×2 (10:44→20:17)
[2017-05-02] MEDS: Acetaminophen 325 MG TAB PO PRN ×2 (10:56→21:35)
--- NOTE | 2017-05-02 15:58 | PRG ---
DATE OF SERVICE: 05/02/2017 SUBJECTIVE: Ms. Herrera did not want to get out of bed with physical therapy, because of pain in her groin where she had a biopsy yesterday. OBJECTIVE: VITAL SIGNS: She is afebrile, heart rate is 99, respiratory rate 16, blood pressure 96/69. GENERAL: She is in no distress. LUNGS: Clear anteriorly. HEART: Regular rhythm. ABDOMEN: Soft. PATHOLOGY: Pending on the lymph node biopsy. IMPRESSION: 1. ?primary peritoneal carcinoma. 2. Underlying cardiomyopathy. 3. Cachexia, most likely secondary to her malignancy. 4. Atrial fibrillation with an atrial thrombus. PLAN: Continue anticoagulation and supportive care. I have explained to her that physical therapy is the most important part of management of her illness at this point in time, so she agreed to sit up in a chair later today.
[2017-05-02 16:18] LABS: Hematocrit 33.5 % (36.0-47.0)
[2017-05-02] MEDS: Atorvastatin Calcium 20 MG TAB PO SCH (20:17)
[2017-05-03 05:22] LABS: #Eosinphils 0.1 thou/uL (0.0-0.7); #Lymphocytes 0.8 thou/uL (1.20-3.40); #Monocytes 0.7 thou/uL (0.11-0.59); #Neutrophils 13.3 thou/uL (1.40-6.50); %Basophils 0.2 % (0.0-1.0); %Eosinophils 0.8 % (0.0-10.0); %Lymphocytes 5.1 % (21.0-51.0); %Monocytes 4.8 % (0.0-10.0); Mean Platelet Volume 6.3 fL (7.4-10.4); Red Blood Cell (RBC) Count 2.95 mill/uL (4.20-5.40)
--- NOTE | 2017-05-03 07:44 | RAD ---
SINGLE VIEW OF THE CHEST: COMPARISON: 05/01/17. HISTORY: Pleural effusion. FINDINGS: A single view of the chest shows an enlarged but stable cardiomediastinal silhouette. The patient i s status post sternotomy. There are small bilateral pleural effusions with adjacent atelectasis. IMPRESSION: Bilateral pleural effusions. POS: [facility]
[2017-05-03] MEDS ORDERED: Enoxaparin Sodium 40 MG/0.4 ML SYRINGE SC SCH (09:00)
--- NOTE | 2017-05-03 09:05 | PRG ---
DATE OF SERVICE: 05/03/2017 SUBJECTIVE: Ms. Herrera is sitting up in a chair. She is awake and alert today and feels better. I think her appetite is still very poor. OBJECTIVE: VITAL SIGNS: Blood pressure 95/57; pulse 80, it is irregular, it is atrial fibrillation. LUNGS: Clear. CARDIAC: Irregularly irregular. ABDOMEN: Soft, nontender. EXTREMITIES: There is no edema. ASSESSMENT: 1. Recently diagnosed adenocarcinoma. Further details pending on that. There is some handwritten note about this being potentially being ovarian. 2. Mitral stenosis, which appears to be mild to moderate on echocardiogram. 3. Normal left ventricular function. 4. Left atrial appendage thrombus. PLAN: 1. She is back on enoxaparin. She was on 40 mg subcutaneous every 12 hours yesterday. We will go to 50 mg subcutaneous every 12 hours. 2. If she is stable tomorrow, we will change her to Eliquis. 3. Consider outpatient left atrial appendage occlusion device, await further information about plan from a malignancy standpoint.
[2017-05-03] MEDS: Cefdinir 300 MG CAP PO SCH ×2 (09:22→20:22)
[2017-05-03] MEDS: Enoxaparin Sodium 60 MG/0.6 ML SYRINGE SC SCH ×2 (09:22→20:23)
--- NOTE | 2017-05-03 14:30 | PRG ---
DATE OF SERVICE: 05/03/2017 Barb Herrera remain stable. PHYSICAL EXAMINATION: VITAL SIGNS: Heart rate is in the 90s. She is afebrile, respiratory rate is 18, oximetry is 94. S he is anticoagulated. Chest radiograph shows no rapid recurrence of her effusions. IMPRESSION: I suspect these effusions were malignant, but the majority of the fluid was related to her rhythm disturbance. The pleural fluid glucose less than 20 on the 04/27/2017 specimen would arg ue that this was going to be malignant or infected, it turned out to be malignant. In any event, we are awaiting pathology of lymph nodes that have been resected to hopefully facilitate planning for chemotherapy.
[2017-05-03] MEDS: Atorvastatin Calcium 20 MG TAB PO SCH (20:22)
--- NOTE | 2017-05-03 21:33 | PRG ---
DATE OF SERVICE: 05/03/2017 SUBJECTIVE: Ms. Herrera is doing fair. No new symptoms noted. No significant palpitation noted. OBJECTIVE DATA: VITAL SIGNS: Blood pressure is 97/67, heart rate 90, respiratory rate 16, temperature 97.6 degrees Fahrenheit. GENERAL: Alert and oriented woman, in no apparent distress. NECK: Supple. Jugular veins not distended. CHEST: Coarse, no crackles. CARDIOVASCULAR: Heart sounds are irregular. CARDIOVASCULAR: S1, S2, variable. No murmur or gallop. ABDOMEN: Benign. Bowel sounds positive. EXTREMITIES: Lower extremities without edema, clubbing, or cyanosis. LABORATORY DATA: Elevated white count of 15, hemoglobin 8.6, platelet count is 244. Chest x-ray from 05/03/2017 reveals bilateral pleural effusion. ASSESSMENT AND PLAN: Ms. Herrera is a pleasant 61-year-old woman with history of rheumatic mitral va lve disease, mild mitral stenosis, recurrent atrial arrhythmias including possibly incisional atrial tachycardia, remote history of cavo-tricuspid isthmus ablation, and more recently atrial fibrillati on. She presented with dyspnea and had significant pleural effusion, which was tapped and eventuall y found to be a malignant effusion. She had continued atrial fibrillation. Repeat WILLIAM was performe d and has a prior history of left atrial appendage clot therapeutic INR as she presented. PLAN: My plan is, 1. Her atrial arrhythmias likely at this point to be treated conservatively. Anticoagulation likel y will be important, especially in view of her rheumatic heart disease and recurrent clots present. For now, she is on subcutaneous Lovenox. Consider converting her to Eliquis, as the labile INRs pr ior to admission contributed to her blood loss. 2. Long-term management depends on her prognosis at this point. Further details will be needed reg arding her adenocarcinoma, which recently was diagnosed from the pleural fluid. 3. Heart rate is adequately controlled. Continue the diltiazem already initiated.
[2017-05-04 05:02] LABS: Hematocrit 28.9 % (36.0-47.0)
[2017-05-04 05:03] LABS: #Eosinphils 0.1 thou/uL (0.0-0.7); #Lymphocytes 0.6 thou/uL (1.20-3.40); #Monocytes 0.9 thou/uL (0.11-0.59); #Neutrophils 14.8 thou/uL (1.40-6.50); %Eosinophils 0.6 % (0.0-10.0); %Lymphocytes 3.8 % (21.0-51.0); %Monocytes 5.5 % (0.0-10.0); Hematocrit 28.5 % (36.0-47.0); Mean Platelet Volume 6.7 fL (7.4-10.4); Red Blood Cell (RBC) Count 2.97 mill/uL (4.20-5.40); White Blood Cell (WBC) Count 16.4 thou/uL (4.8-10.8)
[2017-05-04 05:38] LABS: Anion Gap 10 mmol/L (10-20); BUN (Urea Nitrogen) 16 mg/dL (9.8-20.1); Calc. Creatinine Clearance 71 mL/min (70-130); Carbon Dioxide 28 mmol/L (23-31); Chloride 98 mmol/L (98-107); Estimated GFR-MDRD Greater than 90
--- NOTE | 2017-05-04 08:48 | RAD ---
AP VIEW CHEST: HISTORY: Congestive heart failure. FINDINGS: AP view chest was obtained on 05/04/17. Comparison is made to the previous exam from 05/03/17. AP view chest demonstrates EKG leads seen over the chest. Sternotomy wires are seen. Bilateral ple ural effusions seen. Areas of patchy airspace opacity are seen throughout the lungs unchanged since the previous day's exam. IMPRESSION: Bilateral pleural effusions with possible loculations as well as bilateral airspace opacities. POS: [facility]
--- NOTE | 2017-05-04 09:37 | PRG ---
DATE OF SERVICE: 05/04/2017 SUBJECTIVE: Ms. Herrera is awake and alert today, doing okay. PHYSICAL EXAMINATION: VITAL SIGNS: Blood pressure 99/53, pulse currently is in the 90s, it is atrial fibrillation. LUNGS: Decreased breath sounds at bases. CARDIAC: Irregular, irregular. ABDOMEN: Soft, nontender. EXTREMITIES: There is only mild edema. ASSESSMENT: 1. Atrial fibrillation, now chronic. 2. Edema. 3. Metastatic cancer. 4. Pleural effusions bloody. 5. Atrial appendage clot. PLAN: 1. Change to alkalosis. 2. Chest x-ray and CBC tomorrow. If stable, home. 3 Therapy for the cancer per the oncologist. 4. Eventually would like to see if we can get a left atrial appendage occlusion device, so she can get off Coumadin at some point. The heart failure, appears to be diastolic in nature, will try to c ontrol her heart rate and give her low dose diuretics.
[2017-05-04] MEDS: Apixaban 5 MG TAB PO SCH ×2 (09:49→20:48)
[2017-05-04 12:39] VITALS: BMI 18.2
[2017-05-04] MEDS: Furosemide 20 MG TAB PO SCH (13:45)
--- NOTE | 2017-05-04 16:00 | PRG ---
DATE OF SERVICE: 05/04/2017. SUBJECTIVE: Sitting on the side of the bed, eats meat low, she has actually been eating more. OBJECTIVE: VITAL SIGNS: She is afebrile, heart rate is 94, respiratory rate is 18, oximetry is 100, blood pres sure is 90/59. LUNGS: Unchanged. LABORATORY DATA: White count 16.4, hemoglobin 8.9, platelets 266. Electrolytes were unremarkable. Lymph node pathology is still pending. IMPRESSION: 1. 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 2. Anticoagulation. 3. Left atrial thrombus. 4. Atrial fibrillation. PLAN: Continue supportive care. Awaiting pathology. Dr. Sawyer plans another radiograph in the mo rning. I doubt she will bleed into her chest with her anticoagulants. He will check a radiograph i n the morning and then he will make a decision about discharge.
[2017-05-04 16:22] LABS: Hematocrit 28.7 % (36.0-47.0)
[2017-05-04] MEDS: Potassium Chloride 10 MEQ TAB PO SCH (17:14)
[2017-05-04 19:44] LABS: Calc. Creatinine Clearance 68 mL/min (70-130); Estimated GFR-MDRD Greater than 90
[2017-05-04] MEDS: Atorvastatin Calcium 20 MG TAB PO SCH (20:48)
--- NOTE | 2017-05-04 20:56 | PRG ---
DATE OF SERVICE: 05/04/2017 SUBJECTIVE: Ms. Herrera seems to be doing well today. She denies palpitations or chest pain. OBJECTIVE: VITAL SIGNS: Blood pressure is 108/72, heart rate 98, respiration is 18, temperature 97.6 degrees F ahrenheit. GENERAL: Alert and oriented woman, in no apparent distress. NECK: Supple. Jugular veins not distended. CHEST: Coarse without crackles. CARDIOVASCULAR: Heart sounds are irregularly irregular. S1 and S2 variable. No murmur or gallop. ABDOMEN: Benign. Bowel sounds positive. EXTREMITIES: Lower extremities without edema, clubbing, or cyanosis. DATABASE: Chest x-ray today reveals bilateral pleural effusions with possible loculation as well as disease. EKGs reviewed reveals atrial fibrillation with reasonable rate control. LABORATORY DATA: Hemoglobin is 8.9. White count 16.4, platelet count is 266. ASSESSMENT AND PLAN: Ms. Herrera is a 61-year-old woman with a history of rheumatic mitral valve dis ease, status post mitral repair in the past. Currently, she has mild mitral valve stenosis only. S he initially presented with atrial tachycardia, possibly the incisional flutter, but now she is conv erted to an atrial fibrillation, rate control is easier with atrial fibrillation currently. Particularly in her issues with anticoagulation, she has had left atrial clot-preventing cardioversi on in the past and then she developed hemorrhagic pleural effusions while on Coumadin with a suprath erapeutic INR. During the workup, the pleural effusion came back malignant appearing and she is on workup for [facility] care for her likely pulmonary malignancy. At this point, we will continue rate control for atria l fibrillation. We already initiated diltiazem and also advocated continued anticoagulation due to her rheumatic heart disease and prior clots, now with Nabila since her for warfarin hence the labil e INRs prior. Plan is to continue diltiazem and Nabila wondered for recurrent bleeding, consider anticoagulation and possibly cardioversion at a later date. Also, she would be a very reasonable candidate for a Wa tchman procedure once clinically stable. Probably I will see this lady back in the next 2 to 6 week s in our clinic to discuss that option further.
[2017-05-05 05:15] LABS: #Basophils 0.1 thou/uL (0.0-0.2); #Eosinphils 0.1 thou/uL (0.0-0.7); #Lymphocytes 0.7 thou/uL (1.20-3.40); #Monocytes 0.9 thou/uL (0.11-0.59); #Neutrophils 15.8 thou/uL (1.40-6.50); %Basophils 0.3 % (0.0-1.0); %Eosinophils 0.5 % (0.0-10.0); %Lymphocytes 3.9 % (21.0-51.0); %Monocytes 5.1 % (0.0-10.0); Hematocrit 27.4 % (36.0-47.0); Mean Platelet Volume 6.4 fL (7.4-10.4); Red Blood Cell (RBC) Count 2.87 mill/uL (4.20-5.40); White Blood Cell (WBC) Count 17.5 thou/uL (4.8-10.8)
--- NOTE | 2017-05-05 08:14 | PRG ---
DATE OF SERVICE: 05/05/2017 Ms. Herrera had no complaints today. Chest radiograph was reviewed and shows increasing effusions bilaterally, right greater than left. PHYSICAL EXAMINATION: VITAL SIGNS: She still with O2 sats are 92-100%. Heart rate in the 80s to 90s. She is afebrile. She is in atrial fib. LUNGS: Lungs are remarkable for decreased breath sounds, but she is in absolutely no distress. IMPRESSION: Recurrent malignant effusions. DISCUSSION: She probably would benefit from placement of a PleurX catheter on one side. If we had one on the right, she would probably be reasonably asymptomatic even if she has a dramatic reoccurre nce of her left pleural effusion. This will provide a point of drainage. Her hemoglobin is stable at 8.7. I do not think she is bleeding into her pleural space. I do belie ve this is just a malignant effusion. Her Eliquis will be held this morning and we will consult [facility] for placement of PleurX catheter.
--- NOTE | 2017-05-05 08:28 | RAD ---
AP VIEW OF CHEST: Date: 05/05/17 INDICATION: History of CHF. IMPRESSION: Worsening central edema. COMMENTS: Cardiomegaly, pulmonary vascular congestion, and perihilar air space opacities are more prominent. T here are small bilateral pleural effusions, right greater than left. No pneumothorax is evident. POS: [facility]
[2017-05-05] MEDS ORDERED: Digoxin 0.5 MG/2 ML AMP SLOW IVP SCH (09:00)
--- NOTE | 2017-05-05 09:32 | PRG ---
DATE OF SERVICE: 05/05/2017 Ms. Herrera is nauseated this morning. She said she is not short of breath, but she is sitting at the bedside. PHYSICAL EXAMINATION: VITAL SIGNS: Blood pressure is 109/65, the pulse now is 110, looks like it is atrial flutter or atr ial tachycardia again. LUNGS: Decreased breath sounds at bases. CARDIAC: Tachycardic for rest. ABDOMEN: Soft, nontender. EXTREMITIES: There is mild edema. LABORATORY: The hemoglobin is 8.7, hematocrit 27.4, not a big change. The sodium yesterday was 132 , potassium 3.8. The chest x-ray does show recurrent large pleural effusions bilaterally, right greater than left. ASSESSMENT: 1. Recurrent pleural effusions, probably mixed diastolic heart failure as well as bleeding. 2. Metastatic ovarian cancer. 3. Atrial flutter with a rapid rate again. PLAN: 1. Give her a single dose of digoxin IV. 2. Surgery has been consulted about possibly placing a drain in the right side. 3. Unfortunately I cannot hold anticoagulation long-term with left atrial appendage thrombus, diffi cult situation. Prognosis is guarded.
[2017-05-05] MEDS: Furosemide 20 MG TAB PO SCH ×2 (10:07→14:08)
[2017-05-05] MEDS: Potassium Chloride 10 MEQ TAB PO SCH ×2 (10:08→17:56)
--- NOTE | 2017-05-05 13:26 | CON ---
DATE OF CONSULTATION: 05/05/2017 HISTORY OF PRESENT ILLNESS: Ms. Herrera is a very unfortunate 61-year-old woman who was admitted to the hospital with atrial fibrillation/flutter and left atrial thrombus along with bilateral pleural effusions. Dr. Gaffney did thoracentesis on both pleural effusions, which cytology has shown malignant cells bilaterally. She has a history of ovarian cancer and malignant cells and the malignant cells stained and immunochemistry studies were positive for ovarian cancer. I have been asked to see her to place a right PleurX catheter for recurrent right malignant effusion. Currently, the patient is resting comfortably in bed. She had a dose of Eliquis this morning, but it has been stopped and sh e has been started on Lovenox. PAST MEDICAL HISTORY: 1. Ovarian cancer. 2. Cerebrovascular accident. 3. Mitral valve repair in [place]. 4. Chronic atrial fibrillation with left atrial thrombus. 5. History of renal failure. 6. Hypertension. MEDICATIONS: Noted. ALLERGIES: None. SOCIAL HISTORY: She does not use tobacco. PAST SURGICAL HISTORY: 1. Appendectomy. 2. Mitral valve repair. 3. Ablation of atrial arrhythmias. 4. Upper GI endoscopy. PHYSICAL EXAMINATION: GENERAL: This is a pitiful appearing elderly woman, resting comfortably in bed. VITAL SIGNS: Height is 5 feet 6 inches, weight is 113 pounds, BSA is 1.55, pulse is 106 and irregul damaso irregular, blood pressure is 109/65. NECK: Supple, without adenopathy. CHEST: Has diminished breath sounds throughout. HEART: Rhythm is irregularly irregular. ABDOMEN: Soft. EXTREMITIES: There is mild edema bilaterally in her ankles. ASSESSMENT AND PLAN: This is unfortunately a lady with end-stage ovarian cancer with pleural metast ases. Her right side is reaccumulating fluid. She has been on Eliquis and needs at least 48 hours for the Eliquis to dissipate prior to the elective operation. We will plan for surgery first thing Monday morning for PleurX catheter placement. I have discussed this with the patient and her rosangela d and they are agreeable with proceeding.
[2017-05-05] MEDS ORDERED: Enoxaparin Sodium 40 MG/0.4 ML SYRINGE SC SCH (21:00)
[2017-05-05] MEDS: Atorvastatin Calcium 20 MG TAB PO SCH (21:44)
--- NOTE | 2017-05-05 23:17 | PRG ---
DATE OF SERVICE: 05/05/2017 REFERRING PHYSICIAN: Fawad Sawyer MD SUBJECTIVE: Ms. Herrera seems to be doing fair today. She has some nausea and can tolerate eating as well. She was noted to have increased pleural effusions on her x-ray more prominent than before. OBJECTIVE: VITAL SIGNS: Blood pressure is 104/61, heart rate 95, respirations 21, temperature 99.3 degrees Fahrenheit. GENERAL: She is alert and oriented woman, in no apparent distress. NECK: Supple. Jugular veins not distended. CHEST: Coarse without crackles, but there is dullness noted on the right base above the midline and around the midline in the left base. HEART: Sounds are irregularly irregular. CARDIOVASCULAR: S1, S2, variable. No murmur or gallop. ABDOMEN: Benign. Bowel sounds positive. EXTREMITIES: Lower extremities without edema, clubbing, or cyanosis. LABORATORY DATA: White count 17.5, hemoglobin 8.7, platelet count is 277. INR is 1.9 on the 9th. Sodium 132, potassium 3.8, BUN 16, creatinine 0.68 today. DATABASE: Telemetry strips reveal more organized coarse atrial fibrillation/ flutter is noted with controlled ventricular rates. ASSESSMENT AND PLAN: Ms. Herrera is a 61-year-old woman with atrial arrhythmias including atrial flutter status post CT outpatient in the past, but also more recently likely nontypical flutter is noted, possibly atriotomy scar related. She will also progress to atrial fibrillation, but now she seems to back in some more organized flutter today. Ventricular rates are well controlled on diltiazem 120 mg a day. She is a difficult case for anticoagulation, hence, history of rheumatic heart disease, mild mitral stenosis, and left atrial appendage corrections on Coumadin, but has been therapeutic on presentation, had bloody pleural effusions. Though, this partially could be due to extensive metastasis in the pleural space as well, which has proved to be malignant. At this point, we are attempting to place her back on Eliquis, but has increase of her pleural effusions that will necessitate further chest tube placement, hence the Eliquis again on hold. Decision is difficult at this point, hopefully after repeat tap, her bleeding does not resume and she would be able to go back on Eliquis. Alternatively lower dose of anticoagulation might be also considered. She is also on low dose Lovenox in the meantime. We will follow with you. ALLISOND
[2017-05-06 05:58] LABS: Hematocrit 31.7 % (36.0-47.0)
[2017-05-06 06:19] LABS: Calc. Creatinine Clearance 70 mL/min (70-130); Estimated GFR-MDRD Greater than 90
[2017-05-06] MEDS ORDERED: Fentanyl 100 MCG/2 ML VIAL ONE (07:21)
[2017-05-06] MEDS ORDERED: Midazolam HCl 2 mg/2 ml Vial ONE (07:21)
[2017-05-06] MEDS ORDERED: Propofol 500 MG/50 ML VIAL ONE (07:37)
[2017-05-06] MEDS ORDERED: ceFAZolin Sodium 1 GM VIAL ONE (07:42)
[2017-05-06] MEDS ORDERED: Sodium Chloride 0.9% 100 ML ONE (07:42)
[2017-05-06] MEDS ORDERED: Propofol 200 MG/20 ML VIAL ONE (08:11)
[2017-05-06] MEDS ORDERED: Ondansetron HCl/PF 4 MG/2 ML Vial IVP PRN (08:37)
[2017-05-06] MEDS ORDERED: Morphine Sulfate 2 MG/ML SYRINGE SLOW IVP PRN (08:37)
[2017-05-06] MEDS ORDERED: Promethazine HCl 25 MG/ML VIAL SLOW IVP PRN (08:37)
[2017-05-06] MEDS ORDERED: Promethazine HCl 25 MG/ML VIAL IM PRN (08:37)
[2017-05-06] MEDS: Potassium Chloride 10 MEQ TAB PO SCH ×2 (10:08→18:17)
[2017-05-06] MEDS: Furosemide 20 MG TAB PO SCH ×2 (10:08→14:19)
[2017-05-06] MEDS: Acetaminophen 325 MG TAB PO PRN (10:17)
[2017-05-06] MEDS: HYDROcodone/Acetaminophen 5/325 mg Tablet PO PRN ×2 (12:51→22:07)
--- NOTE | 2017-05-06 15:44 | OP ---
DATE OF OPERATION: 08/06/2016 PREOPERATIVE DIAGNOSIS: Recurrent malignant right pleural effusion. POSTOPERATIVE DIAGNOSIS: Recurrent malignant right pleural effusion. PROCEDURE: Right PleurX catheter placement. SURGEON: Philip Cardona MD ANESTHESIA: 1% lidocaine for local with IV sedation. ESTIMATED BLOOD LOSS: Minimal. DESCRIPTION OF PROCEDURE: After consent was obtained, the patient was brought to the operating room and placed in the supine position on the table. IV sedation was begun. The right chest wall was p repped and draped in usual sterile fashion. The chest wall was anesthetized with 1% lidocaine. The pleural cavity was accessed percutaneously and guidewire placed. The catheter was tunneled from th e anterior axillary line at the access site and the cuff secured the skin. The catheter was then se cured with silk drain stitch. The pleural access site was dilated serially and peel-away catheter p laced. The catheter was then placed through the peel-away catheter into the pleural cavity. Peel-a way catheter was removed. Skin access site was closed with interrupted 4-0 Vicryl suture. Catheter was then connected to the suction and 1500 mL of pleural fluid was evacuated. Sterile dressing was applied and the patient was transferred back to the recovery room in good condition.
[2017-05-06 16:03] LABS: Hematocrit 30.1 % (36.0-47.0)
--- NOTE | 2017-05-06 16:05 | PRG ---
DATE OF SERVICE: 05/06/2017 SERVICE: Pulmonary Medicine. INTERVAL HISTORY: The patient is doing really well from a cardiovascular and respiratory standpoint . She denies any shortness of breath or chest discomfort. She is essentially returning to her [facility]. She had a procedure today and so she has been lying flat, but prior to that, she had no difficulties with really getting around the room. PHYSICAL EXAMINATION: VITAL SIGNS: Afebrile, pulse 87, blood pressure 98/60, respirations 18, saturation 95% on room air. GENERAL: Patient is awake, alert, no apparent distress. LUNGS: Decent air entry with no prolonged expiratory phase wheezing, rhonchi or crackles. HEART: Normal rate, regular. ABDOMEN: Distended. Bowel sounds are present. GENITOURINARY: No Anderson catheter in place. NEUROLOGIC: Grossly nonfocal. LABORATORY DATA: Hemoglobin 9.9, platelets 332,000, creatinine 0.68. Cytometry was unremarkable wi th reduced vital specimen. ASSESSMENT: 1. 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 2. Malignant pleural effusion. 3. Status post PleurX catheter placement, postop day #0. PLAN: We will continue to follow along. At this point, there is no respiratory issue keeping the p atient from being discharged. We will increase mobility as tolerated. I will enlist her in the [facility] program and see if she can get into a chair 3 times daily with meals.
[2017-05-06 18:45] LABS: Hematocrit 28.8 % (36.0-47.0)
[2017-05-06 19:07] LABS: Calc. Creatinine Clearance 67 mL/min (70-130); Estimated GFR-MDRD Greater than 90
[2017-05-06] MEDS ORDERED: Enoxaparin Sodium 40 MG/0.4 ML SYRINGE SC SCH (21:00)
[2017-05-06] MEDS: Atorvastatin Calcium 20 MG TAB PO SCH (22:07)
[2017-05-07] MEDS: Apixaban 5 MG TAB PO SCH ×2 (09:14→20:52)
[2017-05-07] MEDS: Potassium Chloride 10 MEQ TAB PO SCH ×2 (09:14→19:12)
[2017-05-07] MEDS: Furosemide 20 MG TAB PO SCH ×2 (09:15→15:06)
--- NOTE | 2017-05-07 15:59 | PRG ---
DATE OF SERVICE: 05/07/2017 SERVICE: Pulmonary Medicine. INTERVAL HISTORY: The patient is doing outstanding from a respiratory standpoint. She denies any c urrent fevers, chills, nausea or vomiting. She has been up walking the hallways without difficulty. Otherwise, she has no specific complaints presently. PHYSICAL EXAMINATION: VITAL SIGNS: Afebrile, pulse 88, blood pressure 107/76, respirations 18, saturation 97% on room air . GENERAL: Patient is awake, alert, no apparent distress. LUNGS: Excellent air entry. There is not much in the way prolonged expiratory phase, wheezing, rho nchi or crackles. HEART: Normal rate, regular. ABDOMEN: Soft, nontender, nondistended. Bowel sounds positive. MUSCULOSKELETAL: No cyanosis or clubbing. No pitting in the bilateral lower extremities. NEUROLOGIC: Grossly nonfocal. LABORATORY DATA: Hemoglobin is stable at 9.5. Creatinine is also stable at 0.71. All culture resu lts including pleural fluid culture, AFB smear and culture are negative to date. ASSESSMENT: 1. 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 2. Malignant pleural effusion, status post PleurX catheter placement, postprocedure day #1. PLAN: From a purely respiratory perspective, the patient is stable for transition out of the hospit al. Pulmonary will continue to follow while she remains in house. We will do daily drainages from the PleurX catheter. She will continue focusing on increasing mobility to maintain strength well be ing hospitalized. Hopefully, she will be candidate for dismissal from the hospital in 1-2 days.
[2017-05-07] MEDS: Atorvastatin Calcium 20 MG TAB PO SCH (20:52)
[2017-05-07] MEDS: Acetaminophen 325 MG TAB PO PRN (20:55)
[2017-05-08 05:59] LABS: Hematocrit 30.6 % (36.0-47.0)
[2017-05-08] MEDS: Potassium Chloride 10 MEQ TAB PO SCH (08:03)
[2017-05-08] MEDS: Furosemide 20 MG TAB PO SCH (08:04)
[2017-05-08] MEDS: Apixaban 5 MG TAB PO SCH (08:04)
[2017-05-08 09:32] LABS: Anion Gap 14 mmol/L (10-20); BUN (Urea Nitrogen) 23 mg/dL (9.8-20.1); Calc. Creatinine Clearance 60 mL/min (70-130); Calcium 8.4 mg/dL (7.8-10.44); Carbon Dioxide 23 mmol/L (23-31); Chloride 98 mmol/L (98-107); Estimated GFR-MDRD 90
[2017-05-08 09:33] LABS: Digoxin 0.69 ng/mL (0.8-2.0)
[2017-05-08 10:40] VITALS: BP 110/81
--- NOTE | 2017-05-08 11:21 | RAD ---
RADIOGRAPH CHEST 1 VIEW: Date: 05/08/17 Time: 0842 HOURS HISTORY: 61-year-old female, follow-up pleural effusion. COMPARISON: 05/05/17. FINDINGS: The large right pleural effusion and associated large region of consolidation occupying the majority of the volume of the right lung, except for relative sparing of the right apex, has dramatically de creased, upon placement of a right basilar chest tube. Now, the entire right lung is fairly well aer ated. There is residual small right pleural effusion and residual mild streaky densities at the righ t base. The large left pleural effusion has actually increased in volume, but the left perihilar air space d ensity in the left upper lobe has improved. The loculated component of left upper pleural effusion h as decreased in size. The severe cardiomegaly remains. Consolidation of left lower lobe and anterior segment and lingula of left upper lobe remain. No pneumothorax is visualized. Currently, there is n o pulmonary edema. IMPRESSION: 1. Drainage of the most of the volume of the right pleural effusion, resulting in greatly improved aeration of the right lung. 2. Large left pleural effusion is larger now, except for the left upper loculated component, which has decreased. 3. Consolidation of left lower lobe remains. 4. Severe cardiomegaly remains. 5. No pneumothorax. LYSSA [] POS: [facility]
[2017-05-08] MEDS ORDERED: Digoxin 0.125 MG TAB PO SCH (12:00)
--- NOTE | 2017-05-08 14:45 | PRG ---
DATE OF SERVICE: 05/08/2017 ELECTROPHYSIOLOGY FOLLOWUP NOTE SUBJECTIVE: Ms. Herrera seems to be doing well, although she does have rapid rates on ambulation at times. OBJECTIVE DATA: VITAL SIGNS: Blood pressure is 141/64, heart rate 112, respirations 16, temperature 98 degrees Fahrenheit. GENERAL: She is alert and oriented woman, in no apparent distress. NECK: Supple. Jugular veins not distended. CHEST: Coarse without crackles. CARDIOVASCULAR: Heart sounds are irregularly irregular. S1, S2, variable. No murmur, rub or gallop. ABDOMEN: Benign. Bowel sounds positive. EXTREMITIES: Lower extremities without edema, clubbing or cyanosis. DATABASE: The telemetry strips reveal atrial flutter with variable AV conduction. LABORATORY DATA: White count 17.5 on the not checked since, hemoglobin today is 9.3. INR 1.9 on . Sodium 130, potassium 4.6, BUN 23, creatinine 0.79. ASSESSMENT AND PLAN: Ms. Herrera is a 61-year-old woman with history of atrial arrhythmias. She has prior cavotricuspid isthmus ablation in the past when also noted to have possible incisional to be atrial tachycardia. She has developed also atrial fibrillation, but now back to atrial tachyarrhythmia as well. She is currently on rate controlling regimen, hence the recently discovered issues with her adenocarcinoma which possibly ovarian in origin. Complicated issues is hemorrhagic appearing pleural effusion and reaccumulated on Eliquis, but now she had PleurX catheter placement. Daily drainages will be planned. She is planned to be discharged possibly today. At this point, she is stable from the cardiac standpoint, I think it is reasonable to proceed with discharge. We will pursue conservative therapies and hopefully pursue anticoagulation as well with apixaban which has been reinitiated. I am happy to see her back as an outpatient if felt necessary by Dr. Sawyer. [facility]
[2017-05-08 15:00] VITALS: TEMP 98
--- NOTE | 2017-05-08 20:44 | DIS ---
DATE OF ADMISSION: 04/24/2017 DATE OF DISCHARGE: 05/08/2017 FINAL DIAGNOSES: 1. Metastatic carcinoma, ovarian. 2. Recurrent pleural effusions, malignant. 3. History of atrial arrhythmias including atrial fibrillation and atrial tachycardia. 4. Left atrial thrombus in the appendage. 5. Mild mitral stenosis. 6. The prognosis is guarded. MEDICATIONS: At the time of discharge; 1. Diltiazem slow release (Cardizem CD) 120 mg a day. 2. Digoxin 0.125 mg Monday, Monday and Monday. 3. Eliquis 5 mg twice a day. 4. Furosemide 20 mg twice a day orally. 5. Potassium 10 mEq twice a day. Home health is being arranged through Dr. Mederos. Please see admission note. HOSPITAL COURSE: Briefly, Ms. Herrera presented to the office with shortness of breath and pleural e ffusions who was admitted to the hospital. Initially, we were hoping on doing a cardioversion, but a transesophageal echo revealed that despite Coumadin therapy was being supratherapeutic for nearly a month. She still had some thrombus in the left atrial appendage, therefore, that was not able to be done. The patient also had recurrent atrial tachycardia at times and atrial fibrillation at othe r times. We did discover during this hospitalization that both pleural fluids had malignant cells. Evaluation by Oncology has been done and it is still in the process, she will see the oncologist th is afternoon. The patient did undergo procedure by Dr. Cardona on 05/06/2017, at which time he placed a right PleurX catheter placement to drain the fluid, 1500 mL was removed on that day. The patient will follow up with pulmonary to help manage this problem. LABORATORY DATA: Today, sodium 130, potassium 4.6, chloride 98, BUN is 23, creatinine 0.79 and gluc ose 69. Also during this hospitalization, it was found that she had a high CA-125 level of 5863.1. At this point, the patient is not a candidate or would not be appropriate for ablation therapy for the dysrhythmias. If the bleeding continues to be a problem, consideration for trying to get it, Wa tchman could to be given, but for now we are going to treat her with Eliquis.
--- NOTE | 2017-05-08 20:55 | PRG ---
DATE OF SERVICE: 05/08/2017 SUBJECTIVE: Barb Herrera seen today. She is doing well. She is less short of breath. X-ray shows no right pleural effusion, there is a small left pleural effusion. PHYSICAL EXAMINATION: VITAL SIGNS: Blood pressure 140/81, pulse 62, sats 98%, respirations 18. CHEST: Decreased breath sounds without any wheezing. CARDIAC: Normal S1 and S2. No gallops. ABDOMEN: Soft, no masses. LABORATORY DATA: White count 9,000, hemoglobin and hematocrit 9 and 30. Electrolytes are normal. Sodium 130. IMPRESSION: Metastatic carcinoma, bilateral bloody pleural effusion. PLAN: 1. She has a right pleural catheter. 2. From a pulmonary standpoint, she will be discharged home with Oncology.
== END 2017-05-08 13:05 | disposition home or self-care (01) | DRG 829 ==
LOC: 2NO 12:46
PROVIDERS: ADMIT Internal Medicine Cardiovascular Disease; ATTEND Internal Medicine Cardiovascular Disease
PROC: 0W9B3ZZ Drainage of Left Pleural Cavity, Percutaneous Approach (ICD-10-PCS; principal; 2017-04-26)
PROC: 0W993ZZ Drainage of Right Pleural Cavity, Percutaneous Approach (ICD-10-PCS; 2017-04-27)
PROC: B24BZZ4 Ultrasonography of Heart with Aorta, Transesophageal (ICD-10-PCS; 2017-04-27)
PROC: 07BJ0ZX Excision of Left Inguinal Lymphatic, Open Approach, Diagnostic (ICD-10-PCS; 2017-05-01)
PROC: 0W9930Z Drainage of Right Pleural Cavity with Drainage Device, Percutaneous Approach (ICD-10-PCS; 2017-05-06)
DX: C79.9 Secondary malignant neoplasm of unspecified site (principal); I50.33 Acute on chronic diastolic (congestive) heart failure; J91.0 Malignant pleural effusion; R64 Cachexia; D68.32 Hemorrhagic disorder due to extrinsic circulating anticoagulants; E46 Unspecified protein-calorie malnutrition; C77.4 Secondary and unspecified malignant neoplasm of inguinal and lower limb lymph nodes; I42.9 Cardiomyopathy, unspecified; C56.9 Malignant neoplasm of unspecified ovary; R18.8 Other ascites; I47.1 Supraventricular tachycardia; I48.92 Unspecified atrial flutter; R04.89 Hemorrhage from other sites in respiratory passages; Z68.1 Body mass index [BMI] 19.9 or less, adult; C78.2 Secondary malignant neoplasm of pleura; I11.0 Hypertensive heart disease with heart failure; T45.515A Adverse effect of anticoagulants, initial encounter; I48.2 Chronic atrial fibrillation; I51.3 Intracardiac thrombosis, not elsewhere classified; I05.0 Rheumatic mitral stenosis; Z79.01 Long term (current) use of anticoagulants; Z98.890 Other specified postprocedural states; Z86.73 Personal history of transient ischemic attack (TIA), and cerebral infarction without residual deficits
CPT/HCPCS: 36415; 71010; 71250; 74177; 80048; 80053; 80162; 82150; 82378; 82565; 82945; 83615; 83986; 84157; 84478; 85014; 85018; 85025; 85049; 85060; 85610; 85730; 86304; 87070; 87116; 87205; 87206; 88112; 88184; 88305; 88307; 88313; 88341; 88342; 89051; 92960; 93306; 93312; 93798; A4216; C1729; J0690; J1160; J1642; J1650; J1940; J2001; J2250; J2270; J2405; J2704; J3010; J7050; S0020

== ENCOUNTER 2017-05-15 08:46 | Day surgery (SDC) | payer OTHER ==
[2017-05-12 14:52] VITALS: BMI 18.2
[2017-05-15] MEDS ORDERED: Lidocaine 1% (PF) 30 ML VIAL ONE (10:12)
[2017-05-15] MEDS ORDERED: Lidocaine 2% w/Epinephrine 1:200K 20 ML VIAL ONE (10:12)
[2017-05-15] MEDS ORDERED: CEFAZOLIN/Water 2 GM/20 ML SYRINGE ONE (10:19)
[2017-05-15] MEDS ORDERED: Ketorolac Tromethamine 30 MG/ML VIAL ONE (10:20)
--- NOTE | 2017-05-15 15:25 | RAD ---
PORTABLE CHEST 1 VIEW: Date: 05/15/17 Time: 1108 hours HISTORY: MediPort placement. FINDINGS/IMPRESSION: Comparison made with exam of 05/08/17. There has been interval placement of a right subclavian Port-A-Cath with tip in the projection of th e SVC. No pneumothorax is seen. Exam is otherwise stable. POS: [facility]
--- NOTE | 2017-05-16 08:44 | OP ---
DATE OF PROCEDURE: 05/15/2017 PREOPERATIVE DIAGNOSIS: Metastatic ovarian cancer. POSTOPERATIVE DIAGNOSIS: Metastatic ovarian cancer. OPERATION PERFORMED: Placement of right subclavian low profile power compatible MediPort. SURGEON: Kendrick Quezada M.D. ANESTHESIA: Total intravenous anesthesia with local using 0.25% Marcaine with epinephrine. INDICATIONS: The patient is a 61-year-old black female. She was recently diagnosed with metastatic ovarian cancer. Chemotherapy was recommended and she presents for MediPort placement for this purp ose. DESCRIPTION OF OPERATION: Informed consent was obtained. The patient taken to the operating room w here total intravenous anesthesia was obtained with the patient in the supine position. Right chest was prepped with ChloraPrep and draped in sterile fashion. Local anesthetic was infiltrated and a large gauge needle was passed under the clavicle in the subclavian vein. Guidewire was passed throu gh the needle and fluoroscopically confirmed to enter the superior vena cava. Additional local anes thetic was infiltrated and transverse incision was created based on needle insertion site. Subcutan eous pocket was dissected. Introducer dilator was passed over the wire. The catheter was passed th rough the introducer and the introducer was removed in the usual peel-apart fashion. The catheter t ip was positioned at the atrial caval junction and the catheter was trimmed to appropriate length an d secured to the locking hub of the MediPort. The port was secured to the pectoral fascia with 2 in terrupted sutures of 3-0 Prolene. The wound was closed in layers with 3-0 and 4-0 Monocryl suture. Dermabond was placed externally. The port was accessed and it aspirated blood freely and was flush ed with heparinized saline. The access needle was left intact on the port as chemotherapy was plann ed to begin the following day. Sterile occlusive dressing was applied over the access needle. Post -procedure chest x-ray documents good position of the port and catheter.
--- OUTSIDE RECORDS SUMMARY | 2017-05-17 16:07 | XMS | Clinical Summary ---
:1955 Author Organization [facility] Address [address] [place] [address] Phone Care Team Providers Name Role Phone [...]
== END 2017-05-15 12:29 | disposition home or self-care (01) ==
LOC: SDC 08:46
PROVIDERS: ATTEND Specialist
PROC: 0JH63WZ Insertion of Totally Implantable Vascular Access Device into Chest Subcutaneous Tissue and Fascia, Percutaneous Approach (ICD-10-PCS; principal; 2017-05-15)
DX: C80.1 Malignant (primary) neoplasm, unspecified (principal); C79.60 Secondary malignant neoplasm of unspecified ovary; J91.0 Malignant pleural effusion; I48.91 Unspecified atrial fibrillation; I47.1 Supraventricular tachycardia; I05.0 Rheumatic mitral stenosis; Z79.01 Long term (current) use of anticoagulants; Z79.899 Other long term (current) drug therapy; Z95.2 Presence of prosthetic heart valve; Z90.49 Acquired absence of other specified parts of digestive tract; Z98.890 Other specified postprocedural states
CPT/HCPCS: 71010; C1788; J0131; J1642; J1885; J2001

== ENCOUNTER 2017-05-25 13:30 | Inpatient (IN) | payer OTHER ==
[~2017-05-25 13:30] MED LIST: Dextrose 50% Abboject 50 ML SYRINGE ONE; EPINEPHrine 1 MG/10 ML Abboject SYRINGE ONE; Lidocaine 2% Jelly 5 ML TUBE ONE; Lidocaine 2% PF 100 mg/5 ml Syringe ONE
[2017-05-25 14:22] LABS: Bilirubin Moderate (Negative); Blood, Urine Moderate (Negative); Glucose, Urine (Dipstick) Negative (Negative); Ketone, Urine Trace mg/dL (Negative); Nitrite Negative (Negative); Protein, Urine (Dipstick) Negative (Neg-Trace)
[2017-05-25 14:28] LABS: RBC/HPF GREATER THAN 50-TNTC HPF (0-3); Squamous Epithelial 0-3 HPF (0-3); WBC/HPF 0-3 HPF (0-3)
[2017-05-25 14:36] LABS: Hyaline Casts/LPF >50 HYALINE CAST LPF (0-3 Hyaline)
[2017-05-25 14:37] LABS: Bacteria/HPF Rare-Few HPF (None Seen); Renal Epithelial 0-3 HPF (0-3); Transitional Epithelial 0-3 HPF (0-3); Yeast-All Forms None Seen HPF (None Seen)
[2017-05-25 14:42] LABS: Hematocrit 24.7 % (36.0-47.0); Mean Platelet Volume 10.8 fL (7.4-10.4); Red Blood Cell (RBC) Count 2.67 mill/uL (4.20-5.40); White Blood Cell (WBC) Count 0.2 thou/uL (4.8-10.8)
[2017-05-25 14:54] LABS: Anisocytosis MODERATE=16-30 cells (100X) (0-5/hpf)
[2017-05-25 14:55] LABS: Burr Cells MODERATE= 6-15 cells (100X) (0-1/hpf); Ovalocytes SLIGHT = 2-5 cells (100X) (0-1/hpf); Polychromasia SLIGHT = 2-3 cells (100X) (0-2/hpf); Schistocytes SLIGHT = 2-5 cells (100X) (0-1/hpf); Spherocytes SLIGHT = 1-5 cells (100X) (None Seen); Target Cells SLIGHT = 2-5 cells (100X) (0-1/hpf)
[2017-05-25 14:56] LABS: ALT (SGPT) 10 U/L (8-55); AST (SGOT) 26 U/L (5-34); Alkaline Phosphatase 77 U/L (40-150); Anion Gap 20 mmol/L (10-20); BUN (Urea Nitrogen) 40 mg/dL (9.8-20.1); Bilirubin, Total 0.9 mg/dL (0.2-1.2); Calc. Creatinine Clearance 0 mL/min (70-130); Calcium 6.2 mg/dL (7.8-10.44); Carbon Dioxide 14 mmol/L (23-31); Chloride 105 mmol/L (98-107); Estimated GFR-MDRD 72; Globulin 2.4 g/dL (2.4-3.5); Protein, Total 4.1 g/dL (6.0-8.3); Tear Drops SLIGHT = 2-5 cells (100X) (0-1/hpf)
[2017-05-25 15:01] LABS: Troponin I 0.026 ng/mL (< 0.028)
[2017-05-25 15:03] LABS: Lactic Acid - Sepsis 6.4 mmol/L (0.5-2.2)
[2017-05-25] MEDS ORDERED: Cefepime 2 GM, Syringe 2.5 ML in Sterile Water 10 ML SLOW IVP SCH (15:15)
--- NOTE | 2017-05-25 15:28 | RAD ---
FRONTAL VIEW CHEST COMPARISON: 05/15/2017 INDICATION: Sepsis, hypotension. FINDINGS: Progressive opacity throughout the majority of the left hemithorax with relative sparing at the apex . There is a right chest tube overlying the lower right hemithorax. Right-sided venous chest port is again demonstrated. There is enlargement of the cardiac silhouette and pulmonary vasculature. S ternotomy wires are again seen along the midline of the chest. IMPRESSION: Progressive left hemithoracic opacification, predominance of which correlates to a left side, large pleural effusion. There is adjacent atelectasis and/or pneumonia. Loculated density along the late ral aspect of the superior left hemithorax persists indicating probability of complex component such as empyema. Continued follow-up is recommended. POS: FRANCISCO
[2017-05-25] MEDS ORDERED: GRANIX 300 MCG/0.5 ML VIAL SC SCH (16:00)
[2017-05-25] MEDS ORDERED: Acetaminophen 325 MG TAB PO PRN (18:13)
[2017-05-25] MEDS ORDERED: Morphine 10 MG/ML VIAL SLOW IVP PRN (18:13)
[2017-05-25] MEDS ORDERED: HYDROcodone/Acetaminophen 5/325 mg Tablet PO PRN (18:13)
[2017-05-25] MEDS ORDERED: HYDROcodone/Acetaminophen 10/325 mg Tablet PO PRN (18:13)
[2017-05-25] MEDS ORDERED: Sodium Chloride 0.9% 1,000 ML IV SCH ×2 (18:13→23:45)
[2017-05-25] MEDS ORDERED: Ondansetron HCl/PF 4 MG/2 ML Vial IVP PRN (18:13)
[2017-05-25] MEDS ORDERED: Norepinephrine 8 MG/0.9% NS 250 ML ONE (18:47)
[2017-05-25] MEDS ORDERED: Norepinephrine 8 MG/250 ML BAG IVPB PRN (19:03)
[2017-05-25 20:00] VITALS: BMI 19.0
[2017-05-25] MEDS ORDERED: Enoxaparin Sodium 60 MG/0.6 ML SYRINGE SC SCH (21:00)
[2017-05-25] MEDS ORDERED: Famotidine/PF 20 mg/2ml Vial SLOW IVP SCH (21:00)
[2017-05-25] MEDS ORDERED: Potassium Chloride 40 MEQ in Sodium Chloride 0.9% 500 ML IVPB SCH (21:00)
[2017-05-25] MEDS ORDERED: CCU Electrolyte Replacement 1 EACH FS SCH (21:00)
[2017-05-25] MEDS ORDERED: Benzocaine 20% Spray 60 ML CAN FS SCH (21:15)
[2017-05-25] MEDS ORDERED: Magnesium Oxide 400 MG TAB PO PRN ×2 (21:19)
[2017-05-25] MEDS ORDERED: Magnesium 2 GM/NS 0.9% 100 ML 2 GM in Premix Bag 1 BAG IVPB PRN (21:19)
[2017-05-25] MEDS ORDERED: Potassium Chloride 40 MEQ in Sodium Chloride 0.9% 250 ML 250 ML IVPB PRN (21:19)
[2017-05-25] MEDS ORDERED: Potassium Chloride 40 MEQ in Premix Bag 1 BAG IVPB PRN (21:19)
[2017-05-25] MEDS ORDERED: Potassium Phosphate 9 MMOL in Sodium Chloride 0.9% 100 ML IVPB PRN (21:19)
[2017-05-25] MEDS ORDERED: Potassium Phosphate 12 MMOL in Sodium Chloride 0.9% 250 ML 250 ML IV PRN (21:19)
[2017-05-25] MEDS ORDERED: Potassium Phosphate 15 MMOL in Sodium Chloride 0.9% 250 ML 250 ML IV PRN (21:19)
[2017-05-25] MEDS ORDERED: CCU ELECTROLYTE REPLACEMENT PROTOCOL FS PRN (21:19)
[2017-05-25] MEDS ORDERED: Potassium Chloride 20 MEQ TAB PO PRN (21:19)
[2017-05-25 21:20] LABS: Sodium 136 mmol/L (135-148)
[2017-05-25] MEDS ORDERED: Midazolam HCl 2 mg/2 ml Vial IVP SCH (21:30)
[2017-05-25] MEDS ORDERED: Midazolam HCl 2 mg/2 ml Vial ONE (21:33)
[2017-05-25] MEDS ORDERED: Meropenem 2 GM in Sodium Chloride 0.9% 100 ML IVPB SCH (22:00)
[2017-05-25] MEDS ORDERED: CEFEPIME IVPB SCH (22:00)
[2017-05-25] MEDS ORDERED: STERILE WATER IVPB SCH (22:00)
[2017-05-25 22:30] LABS: Oxyhemoglobin 84.7 % (94.0-97.0); Sodium 138 mmol/L (135-148)
[2017-05-25 22:32] LABS: Mode NC; Vent NO
[2017-05-25 22:33] LABS: Mechanical Tidal Volume 400 ml; Mode SIMV; Modified Allen's Test POSITIVE; Pressure Support 10 cmH2O; Vent YES
--- NOTE | 2017-05-25 22:38 | RAD ---
AP VIEW OF THE CHEST 05/25/17 INDICATION: Status post intubation. COMPARISON: Prior exam dated 05/25/17 at 3:01 p.m. FINDINGS/IMPRESSION: The patient has been intubated. The ET tube tip projects in the expected position. The right chest w all port is stable. Cardiomegaly persists. The small left pleural effusion is similar. Right sided t horacostomy tube is unchanged. No definite pneumothorax is evident. Opacity within the left lower lo be appears slightly less prominent. Continued followup is recommended. POS: FRANCISCO
[2017-05-25] MEDS: Dexamethasone 10 MG/ML VIAL SLOW IVP SCH (22:48)
[2017-05-25] MEDS: Ondansetron HCl/PF 4 MG/2 ML Vial IVP SCH (22:48)
--- NOTE | 2017-05-25 23:43 | HP ---
PRIMARY CARE PHYSICIAN: Lewis Mederos MD CHIEF COMPLAINT: Generalized weakness. HISTORY OF PRESENT ILLNESS: The history of present illness is taken primarily from the patient's keven goldmanand who is at the bedside as the patient is extremely weak and is having difficulty completing sen tences due to what appears to be shortness of breath and just overall fatigue. Ms. Herrera is a 61-y ear-old female who was only recently diagnosed with metastatic ovarian cancer. She was hospitalized approximately 3 weeks ago. At that time, she was diagnosed with ovarian cancer and was found to bolton ve a malignant pleural effusion and underwent PleurX catheter placement on the right lung. She was subsequently discharged and has been undergoing chemotherapy. She sees Dr. Carmona for this. She has just completed about 2 weeks of chemotherapy when she began having lower abdominal pain she says starting on Monday as well as some nausea and vomiting and also headache, some retching as well. She denies any fevers or chills but was feeling extremely weak and fatigued. She had a home health visit and she was noted to be hypotensive with a blood pressure in the 60s and her heart rate was re ported to be in the 40s. An ambulance was called and she was given some fluid resuscitation in the ambulance and was brought to our facility. Currently, her blood pressure is in the 90s systolic and her heart rate is in the 100s. She was found to be neutropenic with an elevated lactic acid and ch est x-rays consistent with a left-sided infiltrate and large pleural effusion on the left and possib ly a loculated effusion at that. She is being admitted to the ICU for further treatment. The revie w of systems is essentially unobtainable due to the patient's generalized fatigue; however, I was ab le to obtain that she was not complaining of pain in her chest, her abdominal pain is improved, and her last bowel movement was yesterday and it was normal with no blood. PAST MEDICAL HISTORY: Significant for metastatic ovarian cancer only recently diagnosed, history of a previous cerebrovascular accident with no neurologic sequelae. She has had mitral valve repair, history of chronic atrial fibrillation as well as hypertension, and chronic kidney disease is on her records; however, she has no knowledge of this diagnosis. PAST SURGICAL HISTORY: She has had a recent MediPort placed, mitral valve repair, an ablation of he r arrhythmia, and a PleurX catheter placement on the right. ALLERGIES: No known drug allergies. SOCIAL HISTORY: She is a nonsmoker, nondrinker. She is and has 2 children. Her is her surrogate decision maker and she states that she would like to be a FULL CODE. FAMILY HISTORY: Significant for hypertension. CURRENT MEDICATIONS: Include apixaban 5 mg twice a day, digoxin 0.125 mg daily, diltiazem 120 mg da chago, Lasix 20 mg daily, potassium chloride 10 mEq twice a day, and pantoprazole 40 mg daily and she says there may be a few other medications. PHYSICAL EXAMINATION: GENERAL: She is cachectic but has what appears to be abdominal distention. She has temporal wastin g. VITAL SIGNS: Initially was 76/53 systolic. Currently, her systolic is raised to the 90s, heart rat e 110, respiratory rate is 16, and temperature was 96.8. HEENT: Her pupils are equal, round, and reactive. Extraocular muscles are intact. Her sclerae are anicteric. Throat: No erythema, no exudates. NECK: No adenopathy, no bruits. LUNGS: She has decreased breath sounds on the left. There is no wheezing, no rales. CARDIOVASCULAR: She has a normal S1, S2. I do not appreciate an S3 or S4. There is a slight grade 2/6 systolic murmur. ABDOMEN: Slightly distended, it is nontender. I did not appreciate a fluid wave. No organomegaly. EXTREMITIES: She has 1-2+ pitting edema. NEUROLOGIC: The exam is nonfocal. LABORATORY VALUES AND DIAGNOSTICS: White blood cell count was 0.6, hemoglobin 7.4, hematocrit is 24 .7, platelet count was 41. Sodium is 136, potassium 3.2, chloride is 105, CO2 is 14, BUN of 40, cre atinine 0.95, glucose is 68. Urinalysis shows moderate blood and small leukocyte esterase and rare to few bacteria. Her chest x-ray shows progressive left hemithoracic opacifications. There is a la rge pleural effusion and adjacent atelectasis and/or pneumonia. There is a loculated density along the lateral aspect of the superior hemothorax consistent with a possible empyema. ASSESSMENT AND PLAN: This is a pleasant 61-year-old female who will be admitted to the ICU for acut e sepsis secondary to pneumonia. She may also have complicated pneumonia with possible empyema. e also has a history of advanced ovarian cancer and she is also pancytopenic with severe neutropenia likely secondary to chemotherapy. She will need to be admitted to the ICU with neutropenic precaut ions. She will be placed on broad-spectrum IV antibiotics pending culture results. Infectious Dise ase will be consulted as well as her oncologist. Since she has a history of recurrent malignant ple ural effusions, I suspect some of the pleural effusion accumulation is likely malignant and because there is a concern for loculations as well, we will consult Vascular Surgery as well as she may requ abigail at minimum chest tube placement and possibly a PleurX catheter on the left. She has been on api xaban; however, given her severe weakness, and unlikely whether or not she will be able to tolerate p.o., we will change this to Lovenox and digoxin can be administered IV if needed and/or placing her on IV Cardizem if needed. The patient's overall prognosis is guarded given her advanced ovarian ca ncer and her immunosuppressed status.
[2017-05-26 02:23] LABS: Oxyhemoglobin 95.5 % (94.0-97.0); Sodium 136 mmol/L (135-148)
[2017-05-26 02:26] LABS: Mechanical Tidal Volume 400 ml; Mode SIMV; Modified Allen's Test POSITIVE; Pressure Support 10 cmH2O; Vent YES
[2017-05-26] MEDS ORDERED: Albumin 25% 25 GM/100 ML BOT IVPB SCH (03:00)
[2017-05-26] MEDS ORDERED: Vasopressin 40 UNIT, Admixture Fee 1 EACH in Sodium Chloride 0.9% 100 ML IV SCH (03:00)
[2017-05-26] MEDS ORDERED: Vancomycin HCl 500 MG, Admixture Fee 1 EACH in Sodium Chloride 0.9% 100 ML IVPB SCH (04:00)
--- NOTE | 2017-05-26 04:33 | CON ---
DATE OF CONSULTATION: 05/25/2017 HISTORY OF PRESENT ILLNESS: Barb Herrera is a very pleasant unfortunate woman with metastatic ovari an cancer. She was discharged from the hospital just recently. She was also seen by Dr. Sawyer for atrial arrh ythmias, atrial tachycardia, and atrial fibrillation. She was found to have left lead. She also wa s noted to have a left atrial thrombus in her atrial appendage and mild mitral stenosis. She has boltno d a PleurX catheter placed. Both effusions were tapped by Dr. Gaffney and were malignant. She presented to the emergency room, feeling poorly today after lunch. I was consulted this evening because of respiratory distress. Blood gas was done while I was on my way in and pH was surprisingly better than I expected, it is 7. 36, it has not been entered in the computer yet. She still looks extremely fatigued, so I recommended intubation. PAST MEDICAL HISTORY: 1. Remarkable for having a normal ejection fraction with [id number]-bh-sxzzskly mitral stenosis on her la st echocardiogram. 2. Status post recent placement of a MediPort. She also has a history of lipid disorder and hypertension and mitral valve repair in 2007. She has been chronically anticoagulated. It is unclear to me at this time whether she still anticoa gulated. Looking at lab work, her INR is 1.9 on the 05/01/2017, there is no PT/INR today, order one for in the morning. FAMILY HISTORY: Negative for lung disease. SOCIAL HISTORY: She has a very supportive with him and answered all of his questions this e vening. PHYSICAL EXAMINATION: VITAL SIGNS: Blood pressure is in the 80s, on Levophed through her MediPort. HEENT: Pupils are reactive. She has extreme temporal muscle wasting and neck muscle wasting. She has very little fat on her body. Her ribs are visible. She has bilateral equal breath sounds anter iorly. HEART: Regular rhythm, rapid rate. ABDOMEN: Soft. EXTREMITIES: Without asymmetry. LABORATORY DATA AND X-RAY FINDINGS: Chest radiograph shows a left effusion that is similar to her e ffusion a little over a week ago. She has a PleurX catheter on the right. Sodium 136, potassium 3.2, chloride 105, bicarbonate 14 it was at 2:00 today. BUN 40, creatinine 0. 9. White count was 200, hemoglobin 7.4, and platelets 41,000. IMPRESSION: 1. Pancytopenia secondary to chemotherapy. She says she received her last chemo on . 2. Clinical presentation most consistent with sepsis. I don't think her last effusion is causing h er shortness of breath and tachypnea and certainly not causing her metabolic acidosis. She has been given broad spectrum antimicrobial therapy. Because of her muscle weakness, I do think she would be able to continue much longer with intubation, so she has been intubated. She received 2 more liters of saline, continued with pressors and antibiotics, IV Decadron disorder by Dr. Carmona earlier and IV Zofran for nausea. She was apparently thrown up earlier, she has not tanvi on exam suggestive of an acute abdomen. Critical care time 45 minutes, independent of the procedures and meeting with the family. ADDENDUM: I talked to her and he mentioned that she was no longer on Coumadin and on Eliquis now so we will still check coags in the morning just in the event that she is developing DIC. The Eliquis wi ll be held for now. Dr. Sawyer will be notified of her admission as well as Dr. Gaffney.
[2017-05-26 04:39] VITALS: TEMP 97.4
[2017-05-26 04:54] LABS: Fibrinogen 337 mg/dL (253-463); Prothrombin Time 78.4 SEC (12.0-14.7)
[2017-05-26 04:56] LABS: Hematocrit 30.4 % (36.0-47.0); Mean Platelet Volume 12.7 fL (7.4-10.4); Red Blood Cell (RBC) Count 3.24 mill/uL (4.20-5.40); White Blood Cell (WBC) Count 0.1 thou/uL (4.8-10.8)
[2017-05-26 05:07] LABS: PTT 61.2 SEC (22.9-36.1)
[2017-05-26 05:08] LABS: Prothrombin Time 77.9 SEC (12.0-14.7)
[2017-05-26 05:14] LABS: Anion Gap 21 mmol/L (10-20); BUN (Urea Nitrogen) 38 mg/dL (9.8-20.1); Calc. Creatinine Clearance 57 mL/min (70-130); Carbon Dioxide 10 mmol/L (23-31); Chloride 111 mmol/L (98-107); Estimated GFR-MDRD 82
[2017-05-26 05:16] LABS: Calcium 5.7 mg/dL (7.8-10.44)
[2017-05-26] MEDS ORDERED: Dextrose 50% Abboject 50 ML SYRINGE ONE (05:17)
[2017-05-26] MEDS: Sodium Chloride 0.45% 1,000 ML IV SCH ×2 (05:20)
[2017-05-26] MEDS: Dexamethasone 10 MG/ML VIAL SLOW IVP SCH (05:21)
[2017-05-26] MEDS: Ondansetron HCl/PF 4 MG/2 ML Vial IVP SCH (05:24)
[2017-05-26] MEDS ORDERED: EPINEPHrine 4 MG, Admixture Fee 1 EACH in Dextrose 5% in Water 250 ML IVP SCH ×3 (06:00)
[2017-05-26] MEDS ORDERED: Hydrocortisone Sod Succ/PF 100 mg/2 ml Vial IVP SCH (06:00)
--- NOTE | 2017-05-26 06:09 | CON ---
DATE OF CONSULTATION: 05/25/2017 HISTORY OF PRESENT ILLNESS: A 61-year-old patient with a history of rheumatic fever with mitral stenosis and regurgitation, status post mitral valve repair, SVT requiring ablation post procedure, previous left hemispheric CVA and a recently diagnosed metastatic ovarian cancer who received her first course of chemotherapy and was admitted now with weakness, hypothermia and neutropenia. This is actually the second week of chemotherapy and usually it did on Tuesdays. She was seen by home health and has been identified with hypotension with systolic in the 60s, given IV fluids in the ambulance and admitted to the ICU. Currently on broad spectrum coverage. She is awake and alert, feeling very cold. No headaches, no visual symptoms, sore throat, odynophagia, dysphagia, no back pain, no cough, no dyspnea, no abdominal pain. She has a Anderson catheter inserted in the emergency room. Normal focal neurological symptoms. PAST MEDICAL HISTORY: Rheumatic fever with mitral stenosis and status post mitral valve repair, prior CVA, atrial arrhythmia requiring ablation in the past , previous evidence of atrial clot, ovarian cancer on chemotherapy, port placement for chemotherapy and hyperlipidemia, no known drug allergies. PAST SURGICAL HISTORY: Also includes appendectomy, thoracentesis with a diagnosis of metastatic pleural effusion in the recent past. 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 Two healthy children. Never a smoker. FAMILY HISTORY: Noncontributory. CURRENT MEDICATIONS: Include Tylenol, [place], Lovenox, meropenem, and vancomycin. PHYSICAL EXAMINATION: VITAL SIGNS: She is currently 94.7, pulse 112, respirations 16, O2 sat 99%. SKIN: The patient has significant cachexia with temporal wasting. MediPort access in the right subclavian position. Anderson catheter in place. No areas of skin breakdown noted. HEENT: No lymphadenopathy. Ocular movements are conjugate, markedly pale conjunctivae. Nasal passages patent. Oral cavity with dry oral mucosa. Numerous teeth in place with marked decay. NECK: Supple, no jugular venous distention. LUNGS: With diminished breath sounds on the left side with faint inspiratory crackles. HEART: S1, S2 with irregular rate. No obvious murmurs. ABDOMEN: Moderately distended, no evidence of fluid wave. No tenderness. No bladder distention. EXTREMITIES: No joint inflammatory activity. Pulses are faintly palpable in dorsalis pedis. NEUROLOGIC: Plantar responses are flexor. She is able to move the extremities , but she is diffusely weak. LABORATORY DATA: White cell count was 17.5 on 05/05/2017 and now is down to 0.2 , hemoglobin 7.4, MCV 92, platelets 41,000. Sodium is up to 136, creatinine 0.95. Lactic acid 6.4. Urinalysis with 0-3 wbc's, greater than 50 RBCs. MICROBIOLOGY: We have negative influenza serology for antigen and blood cultures are pending. The x-ray showed increasing opacification of the left hemithorax, probably from the malignant effusion. ASSESSMENT: 1. Metastatic ovarian cancer 2. Cachexia. 3. Neutropenia, following chemotherapy. 4. Malignant pleural effusion. DISCUSSION: The patient has a port and has been started on broad spectrum coverage with meropenem and vancomycin. Cultures submitted. Neupogen has been administered. The patient is hypothermic from sepsis and we will continue current regimen, probably pending on blood culture results or transition to cefepime + vanco, there is a high likelihood of a quick neutrophil count recovery. MTDD
--- NOTE | 2017-05-26 06:10 | OP ---
DATE: 05/25/2017 PROCEDURE: Fiberoptic bronchoscopy with intubation. Patient was in the sitting position. Throat w as sprayed with Hurricaine [place]. Bite block was placed in her mouth. Bronchoscope was easily pass ed through her cords into her trachea. An endotracheal tube was advanced and secured above her main toney. Bilateral equal breath sounds were noted. Her respiratory excursion was symmetrical and s he nodded that she felt much better with positive pressure ventilation. She was then sedated with 2 mg of Versed. She will start on tidal volume of 400 IV at 24, PEEP of 8 . There were no specimens to obtain. Her tracheobronchial tree was clear. She still had brown vom it around her cords and her upper airway. She had no gag whatsoever when touched her cords, no coug h when I passed into her trachea. I think this is mostly a manifestation of how weak she is.
--- NOTE | 2017-05-26 06:43 | PDOC.EVN ---
Event Note - Event Note Event Note: Code Blue for Cardiac Arrest and PEA: Admitted for severe sepsis, neutropenia and metastatic ovarian cancer with malignant effusion and respiratory failure. PEA noted after clinical deterioration with multiple pressors, IVF's, PRBC's and Albumin. ACLS protocol followed with chest compressions and Epinephrine with multiple boluses given with variable response. Pulse returned briefly for approximately 1-2 min then PEA ensued. Sodium bicarbonate, IVF boluses, Epinephrine gtt and all interventions were unsuccessful in ROSC. Code was terminated at 0621 and pt was pronounced. was notified of situation and he is enroute to the hospital. Decedent affairs notified. Total critical care time: 35min
--- NOTE | 2017-05-26 06:48 | PRG ---
DATE OF SERVICE: 05/26/2017 SUBJECTIVE: Ms. Herrera overnight has remained hypotensive. She still remained severely neutropenic , thrombocytopenic. DIC panel this morning showed an INR of 8.8, PTT is 61. She developed asystole this morning and CPR and ACLS protocol resuscitation attempts were unsuccessf ul. Glucose was noted to be 39 on the 04:15 lab. The family has been notified, but they have not a rrived.
[2017-05-26] MEDS ORDERED: Pantoprazole 40 MG VIAL IVP SCH (09:00)
--- NOTE | 2017-05-26 17:19 | DIS ---
DATE OF ADMISSION: 05/25/2017 DATE OF : 05/26/2017 PRIMARY CARE PHYSICIAN: Lewis Mederos M.D. DISCHARGE DIAGNOSES: Include: 1. Sepsis due to empyema. 2. Empyema. 3. Metastatic ovarian cancer. 4. History of cerebrovascular disease. 5. History of chronic atrial fibrillation. 6. Hypertension. CODE STATUS: FULL CODE. ALLERGIES: No known drug allergies. HOSPITAL COURSE: Ms. Herrera was a 61-year-old female that has a history of metastatic ovarian cance r. She was only recently diagnosed and her presentation at that time was secondary to a large right pleural effusion. The patient underwent PleurX catheter placement and was discharged home and star ministerio on chemotherapy. At the time of diagnosis, she already had quite advanced ovarian cancer with p eritoneal carcinomatosis. She presented to our facility with extreme weakness. The patient was hyp otensive and tachycardic. She also had developed a pancytopenia as well as DIC. She was admitted d ue to severe sepsis, started on broad-spectrum IV antibiotics and shortly after her admission, she d ecompensated. Pulmonary and Critical Care which had been consulted on admission, they were contacte d and saw the patient late that evening. Dr. Sanders discussed with the family their wishes and they wish to try aggressive treatment. The patient was intubated; however, later on, that night and santa y that morning, the patient decompensated further and despite being placed on the ventilator and on IV pressors for blood pressure support, the patient developed cardiac arrest and pulseless electrica l activity. ACLS was performed for several minutes; however, the patient was never able to regain a pulse and the code was terminated at 6:20 a.m. and the patient was pronounced . The wa s notified and his questions were answered. The patient likely as a result of sepsis from the empyema which is directly related to her metastatic ovarian cancer.
--- NOTE | 2017-05-27 09:34 | CON ---
DATE OF CONSULTATION: 05/25/2017 DATE OF DISCHARGE: 05/27/2017 HISTORY: This is a 61-year-old -Serbian female who presented with bilateral pleural effusio n with adjacent patchy areas of consolidation, a 10 mm mediastinal lymph node and CT abdomen and pel vis showing ascites, omental thickening and nodularity arising from peritoneum in the pelvis. The o varian masses were not reported. There was an 8 mm intermediate lesion in the right lobe of the michelle er and 3.5 cm left inguinal mass. The patient underwent thoracentesis and placement of catheter in the right pleural cavity yielding 600 mL of fluid, it showed cells consistent with ovarian primary. Biopsy of the left inguinal lymph node showed 5.2 cm mass histologically consistent with ovarian ty pe primary with numerous psammoma bodies. Baseline CA-125 level was around 5800. The patient was f elt to have ovarian type of carcinoma arising in peritoneal cavity and involving both pleura and the right inguinal lymph node and possibly liver. She was started on dose dense chemotherapy and recei cooper chemotherapy with carboplatin and Taxol on 05/16/2017. Taxol was repeated on 05/23/2017. On , her CBC showed WBC 2200 with hemoglobin of 8.4 grams, and platelet count of 155,000. Her ANC was 1700. The patient started to have abdominal pain on 05/24/2017. On 05/25/2017, the patient was found to be hypotensive at home as reported by home health care and was asked to go to the [facility] room. She was found to be hypotensive and aggressive IV fluid replacement was started. She w as also given vancomycin and cefepime in the emergency room. LABORATORY DATA AND X-RAY FINDINGS: CBC showed WBC of 200 with hemoglobin of 7.4 grams, and platele t count of 41,000. Chest x-ray which showed progressive left hemithoracic opacification and a lobul ated density along the lateral aspect of the superior left hemithorax. The right hemithorax was for the most part clear. The patient has been admitted to ICU. She is currently on Levophed. PHYSICAL EXAMINATION: GENERAL: The patient appears alert and oriented. VITAL SIGNS: Temperature 95.7, pulse 105, respirations 28. HEENT: No peripheral lymphadenopathy. CHEST: Vesicular breathing. Percussion was to impair over the left hemithorax. HEART: Tachycardia, S1, S2. ABDOMEN: Soft and full. Bowel sounds decreased. EXTREMITIES: Bipedal edema. LABORATORY DATA: CBC has been mentioned earlier. Chemistry profile showed potassium 3.2, sodium 13 6, creatinine 0.95, glucose 68, calcium 6.2, total serum protein 4.1 with albumin of 1.7. Lactic ac id 6.4. ASSESSMENT AND RECOMMENDATIONS: This patient is pancytopenia and septic. She could potentially hav e a left-sided pneumonia under empyema. She should receive aggressive supportive treatment with IV antibiotics and blood component support. I have ordered 2 units of packed red blood cell transfusio n. Thanks very much for asking me to participate in this patient's care. I will follow this patient al bipin with you.
--- NOTE | 2017-06-03 16:42 | EKG ---
Test Reason : Blood Pressure : / mmHG Vent. Rate : 100 BPM Atrial Rate : 359 BPM P-R Int : 000 ms QRS Dur : 078 ms QT Int : 308 ms P-R-T Axes : 000 011 -74 degrees QTc Int : 397 ms Atrial flutter with variable A-V block Nonspecific T wave abnormality Abnormal ECG Confirmed by REZA BLUE, GOVIND ([id number]), managing editor COLBY VALENCIA ([id number]) on 06/03/2017 4:41:47 PM Referred By: Confirmed By:GOVIND COBB MD
== END 2017-05-26 06:21 | disposition expired | DRG 871 ==
LOC: ERS 13:30 → CCU 16:28
PROVIDERS: ADMIT Internal Medicine; ATTEND Internal Medicine
PROC: 5A1935Z Respiratory Ventilation, Less than 24 Consecutive Hours (ICD-10-PCS; principal; 2017-05-25)
PROC: 0BH18EZ Insertion of Endotracheal Airway into Trachea, Via Natural or Artificial Opening Endoscopic (ICD-10-PCS; 2017-05-25)
PROC: 30233N1 Transfusion of Nonautologous Red Blood Cells into Peripheral Vein, Percutaneous Approach (ICD-10-PCS; 2017-05-26)
DX: A41.9 Sepsis, unspecified organism (principal); J18.9 Pneumonia, unspecified organism; D65 Disseminated intravascular coagulation [defibrination syndrome]; J96.90 Respiratory failure, unspecified, unspecified whether with hypoxia or hypercapnia; J86.9 Pyothorax without fistula; D61.810 Antineoplastic chemotherapy induced pancytopenia; J91.0 Malignant pleural effusion; T68.XXXA Hypothermia, initial encounter; R64 Cachexia; I95.9 Hypotension, unspecified; R18.8 Other ascites; C56.9 Malignant neoplasm of unspecified ovary; Z68.1 Body mass index [BMI] 19.9 or less, adult; R65.20 Severe sepsis without septic shock; I46.9 Cardiac arrest, cause unspecified; I48.2 Chronic atrial fibrillation; Z86.73 Personal history of transient ischemic attack (TIA), and cerebral infarction without residual deficits; I12.9 Hypertensive chronic kidney disease with stage 1 through stage 4 chronic kidney disease, or unspecified chronic kidney disease; N18.9 Chronic kidney disease, unspecified; Z92.21 Personal history of antineoplastic chemotherapy; K76.9 Liver disease, unspecified
CPT/HCPCS: 36430; 51702; 71010; 80048; 80053; 81003; 81015; 82553; 82805; 83605; 84484; 85007; 85025; 85027; 85049; 85300; 85362; 85379; 85384; 85610; 85730; 86850; 86900; 86901; 87040; 87077; 87086; 87149; 87186; 93005; 94002; 94003; 94760; 96361; 96365; 96372; 96375; A4216; J0171; J0692; J1100; J1442; J2001; J2185; J2250; J2405; J3370; J3480; J7050; J7070; P9016; P9047; S0028